=== PATIENT | male | born 1970 | race Caucasian/White ===

== ENCOUNTER → 2017-07-23 | Outpatient (CLI) | payer OTHER ==
[~2017-07-23] MED LIST: CETI10TA84 PO; CYCL10TA6 PO; MULT-506 PO; OMEP20CA9 PO; ONDA4TAB7 SL; PRLSR20 PO; TRIA37.5 PO
== END | disposition home or self-care (01) ==
LOC: C.RDSM 14:56
PROVIDERS: ATTEND Physical Medicine & Rehabilitation Sports Medicine
DX: M25.559 Pain in unspecified hip (principal)

== ENCOUNTER 2023-01-31 05:02 | Observation (INO) ==
--- NOTE | 2023-01-10 10:27 | PAT Medication Instructions ---
Medication Instructions Date of Service January 10, 2023 Home Medications cetirizine 10 mg tablet 10 mg PO DAILY PRN dicyclomine 10 mg capsule 10 mg PO BID fluticasone propionate 50 mcg/actuation nasal spray,suspension (Allergy Relief (fluticasone)) 1 spray intranasal DAILY PRN multivitamin with minerals 1 tab PO DAILY omeprazole 40 mg capsule,delayed release 40 mg PO QAM triamterene 37.5 mg-hydrochlorothiazide 25 mg tablet 1 tab PO DAILY triamterene 75 mg-hydrochlorothiazide 50 mg tablet 1 tab PO QAM Continue as directed fluticasone propionate 50 mcg/actuation nasal spray,suspension (Allergy Relief (fluticasone)) 1 spray intranasal DAILY PRN(if needed) DO NOT take the morning of surgery cetirizine 10 mg tablet 10 mg PO DAILY PRN dicyclomine 10 mg capsule 10 mg PO BID multivitamin with minerals 1 tab PO DAILY triamterene 37.5 mg-hydrochlorothiazide 25 mg tablet 1 tab PO DAILY triamterene 75 mg-hydrochlorothiazide 50 mg tablet 1 tab PO QAM Take morning of surgery With a small sip of water, OTHERWISE NOTHING TO EAT OR DRINK AFTER MIDNIGHT: omeprazole 40 mg capsule,delayed release 40 mg PO QAM Take evening before surgery dicyclomine 10 mg capsule 10 mg PO BID Other Notes If you have any questions please call us at [phone] or [phone] or [phone] or [phone]
--- NOTE | 2023-01-12 09:02 | Anesthesiology Consultation ---
Date of Service January 12, 2023 Assessment & Plan (1) Encounter for pre-operative examination: - Outpatient joint assessment: Patient is currently scheduled for inpatient pathway. If re-evaluated and patient/surgeon requests outpatient pathway, patient is acceptable candidate for outpatient joint program from anesthesia standpoint pending surgeon's office assessment of pt motivation/support/completion of same day joint program preop requirements. Chart Review Chart Review: Acceptable Risk for Surgery and Patient seen in Pre Admission Testing Teaching & Discussion Pre-Anesthesia Teaching/Discussion Notes: Instructed NPO after midnight before surgery, except medications with 15 cc of water. Medication instructions provided according to the PAT guidelines. History Surgery Operation Date: 01/31/23 07:00 Proposed Procedures p Left Total Hip Arthroplasty, Possible Dual Mobility System - Dmitriy Mixon MD Height/Weight Height: 6 ft Weight: 120.8 kg Allergies Allergy/AdvReac Type Severity Reaction Status Date / Time grass pollen Allergy Mild Sneezing Unverified 01/05/23 13:59 tree and shrub pollen Allergy Mild Watery Eye Unverified 01/05/23 13:59 weed pollen Allergy Mild Sneezing Unverified 01/05/23 13:59 Medications Home Medications Medication Instructions Recorded Confirmed Last Taken cetirizine 10 mg tablet 10 mg PO DAILY PRN Allergy Symptoms 07/05/22 01/05/23 Unknown dicyclomine 10 mg capsule 10 mg PO BID 07/05/22 01/05/23 Unknown fluticasone propionate 50 1 spray intranasal DAILY PRN 07/05/22 01/05/23 Unknown mcg/actuation nasal Allergy Symptoms spray,suspension (Allergy Relief (fluticasone)) multivitamin with minerals 1 tab PO DAILY 07/05/22 01/05/23 Unknown omeprazole 40 mg capsule,delayed 40 mg PO QAM 07/05/22 01/05/23 Unknown release triamterene 75 1 tab PO QAM 01/05/23 01/05/23 Unknown mg-hydrochlorothiazide 50 mg tablet Past Medical History Medical History (Updated 01/12/23 @ 09:17 by Valerie De Leon PA-C) Chronic sinusitis denies current issues GERD (gastroesophageal reflux disease) controlled, stable per pt Hypertension controlled, stable per pt IBS (irritable bowel syndrome) Nausea and vomiting after administration of anesthetic agent denies needing scop patch Seasonal allergies Patient denies h/o stroke, seizures, heart attack, heart failure, DM, blood clots/DVTs or blood transfusions. Exercise / Class Metabolic Activity II 4-5 Yardwork/Stairs/Walk up hill (denies chest discomfort or shortness of breath with 1 FOS) Past Family History Family History Grandfather (Maternal) Hypertension Heart disease Grandmother (Maternal) Hypertension Stroke Uncle Cancer Asthma Mother No problems noted. Past Surgical History Surgical History (Updated 01/12/23 @ 09:18 by Valerie De Leon PA-C) H/O sinus surgery H/O wrist surgery right History of esophagogastroduodenoscopy (EGD) History of tonsillectomy and adenoidectomy Hx of colonoscopy Hx of hand surgery finger Past Anesthesia History No Family Hx of Anesthesia Complications and Other (awareness during tonsillectomy/combative with confusion and slow to wake after a different procedure-denies any issues with recent procedures, denies any h/o re- intubation) History of PONV History of PONV (denies needing scop patch) and Hx of Motion Sickness Social History Smoking Status: Never smoker Do You Dip or Chew Tobacco: No Hx Alcohol Use: Yes Alcohol type: beer alcohol intake frequency: a few times a month Hx Substance Use: No substance use type: does not use Review of Systems Snoring, denies witnessed apneas-reports negative sleep study yrs ago. Patient denies chest pain, shortness of breath, dyspnea on exertion, fever, chills, cough, wheezing, or palpitations. Physical Exam Vital Signs Vitals BP 137/88 P 79 TEMP 98.8 SP02 95% on RA RESP 18 Physical Patient resting comfortably in chair in no acute distress, alert and oriented, responding appropriately throughout visit Full cervical extension range of motion without pain TMD 3.5 finger breadths Mallampati Score 2 Dentition: intact, denies chipped or loose teeth, caps/crowns, implants or bridges-has upcoming dental appt for loose fillings-pt made aware he needs to contact surgeon's office regarding this. He verbalized understanding and agreement. Lungs: normal respiratory effort. Good air movement, clear throughout to auscultation, no adventitious breath sounds Cardiac: regular rate and rhythm, no murmurs noted Carotid arteries: negative bruit bilat Lab Results Anesthesia Preop Results Results Anesthesia Widget: WBC 7.17 K/ul (4.8-10.8) 01/12/23 Hgb 16.3 g/dl (14.0-18.0) 01/12/23 Hct 45.0 % (42.0-52.0) 01/12/23 Plt 300 K/uL (130-400) 01/12/23 Na 138 mmol/L (136-145) 01/12/23 K 4.0 mmol/L (3.5-5.1) 01/12/23 Cl 103 mmol/L (98-107) 01/12/23 CO2 28 mmol/L (21-32) 01/12/23 BUN 17 mg/dl (6-23) 01/12/23 Creat 1.10 mg/dl (0.6-1.4) 01/12/23 Glucose Level 95 mg/dl (70-99(Fasting)) 01/12/23 PT 10.3 Seconds (9.0-12.0) 01/12/23 PTT 27.6 Seconds (21.0-31.0) 01/12/23 INR 0.9 (0.9-1.1) 01/12/23 Urine Color Yellow 01/12/23 Urine Appearance Clear (Clear) 01/12/23 Urine pH 8.0 (4.5-7.5) H 01/12/23 Urine Specific Tyler 1.015 (1.000-1.030) 01/12/23 Urine Protein Negative (Negative) 01/12/23 Urine Glucose (UA) Negative (Negative) 01/12/23 Urine Ketones Negative (Negative) 01/12/23 Urine Blood Negative (Negative) 01/12/23 Urine Nitrite Negative (Negative) 01/12/23 Urine Bilirubin Negative (Negative) 01/12/23 Urine Urobilinogen Negative (Negative) 01/12/23 Urine Leukocyte Esterase Negative (Negative) 01/12/23 Blood Type O Positive 01/12/23 Antibody Screen NEGATIVE 01/12/23 Testing Electrocardiogram Date: 01/12/23 NSR, rate 69 bpm Chest X-Ray Date: 01/12/23 No acute process
[2023-01-31] MEDS ORDERED: LR 60ML/HR IV SCH (06:00)
[2023-01-31] MEDS ORDERED: TRANEXAMIC ACID 1,000 MG **IV Intra-op IV SCH (06:00)
[2023-01-31] MEDS ORDERED: TRANEXAMIC ACID 1,000 MG **IV Pre-op IV SCH (06:00)
[2023-01-31] MEDS ORDERED: LR 500ML BOLUS, THEN 15ML/HR IV SCH (06:00)
[2023-01-31] MEDS ORDERED: ROPIVACAINE 0.5% HCL/PF 150 MG, BUPIVACAINE 0.75% MPF 20 ML, EPINEPHrine 0.15 MG, Ketor... INFIL SCH (06:00)
[2023-01-31] MEDS ORDERED: BUPIVACAINE 0.5 % 5 MG/1 ML PF 10ML VIAL ONE (06:25)
--- NOTE | 2023-01-31 06:31 | History & Physical Bridge Note ---
Date of Service January 31, 2023 History & Physical Bridge Note I have examined the patient, reviewed the History & Physical and in the interval since the performance of the History & Physical I have noted the following changes of clinical significance: consent obtained/site verified.no changes noted
[2023-01-31] MEDS ORDERED: ORTHO JOINT ANESTHETIC ONE (06:33)
[2023-01-31] MEDS ORDERED: PROPOFOL IV EMULSION 10 MG/ML 20 ML VIAL IV ONE ×3 (06:39→08:35)
[2023-01-31] MEDS ORDERED: LIDOCAINE 2% 2 ML VIAL/AMP(20MG/ML) INFIL ONE (06:39)
[2023-01-31] MEDS ORDERED: fentaNYL citrate PF 100 MCG/2 ML VIAL ONE (06:40)
[2023-01-31] MEDS ORDERED: MIDAZOLAM HCL 1 MG/ML 2ML VIAL ONE (06:40)
[2023-01-31] MEDS ORDERED: ONDANSETRON INJ 2 MG/ML 2 ML VIAL ONE (07:04)
[2023-01-31] MEDS ORDERED: DEXAMETHASONE SOD INJ 4 MG/ML VIAL ONE (07:04)
[2023-01-31] MEDS ORDERED: HYDROmorphone INJ 1 MG/ML SYRINGE IV PRN (07:13)
[2023-01-31] MEDS ORDERED: PROMETHAZINE HCL 12.5 MG in SODIUM CHLORIDE 0.9% 50 ML IV PRN (07:13)
[2023-01-31] MEDS ORDERED: LABETALOL HCL IV 5 MG/ML 20ML IV PRN (07:13)
[2023-01-31] MEDS ORDERED: ePHEDrine sulfate 50 MG/ML AMP IV PRN (07:13)
[2023-01-31] MEDS ORDERED: NALOXONE HCL 0.4 MG/1 ML VIAL/CARP IV PRN ×2 (07:13→10:14)
[2023-01-31] MEDS ORDERED: ATROPINE SULFATE 0.1 MG/ML 10ML SYR IV PRN (07:13)
[2023-01-31] MEDS ORDERED: FLUMAZENIL 0.1 MG/1 ML 10 ML VIAL IV PRN (07:13)
[2023-01-31] MEDS ORDERED: fentaNYL citrate PF 100 MCG/2 ML VIAL IV PRN (07:13)
[2023-01-31] MEDS ORDERED: ONDANSETRON INJ 2 MG/ML 2 ML VIAL IV PRN ×2 (07:13→10:14)
[2023-01-31] MEDS ORDERED: VANCOMYCIN HCL 1000MG/20ML VIAL ONE (08:11)
--- NOTE | 2023-01-31 08:57 | Post Operative Brief Note ---
Immediate Post Op Note v1 Date of Surgery January 31, 2023 Pre & Post Diagnosis Operation Date: 01/31/23 07:00 Pre-Op Diagnosis: Left Hip Osteoarthritis Post-Op Diagnosis: Left Hip Osteoarthritis I identified the patient and participated in the time-out.: Yes Procedure Operation Date: 01/31/23 07:00 Actual Procedures p Left Total Hip Arthroplasty,Dual Mobility System--Uncemented(Left) - Dmitriy Mixon MD Surgeon Dmitriy Mixon MD Medical Record Librarians Teacher [facility] no resident or fellow available Estimated Blood Loss 150 Findings Consistent with Post-Op Diagnosis Severe osteoarthritis significant acetabular osteophyte around the rim Fluids See anesthesia report Complications None
--- NOTE | 2023-01-31 09:01 | Operative Report ---
Post Operative Report Procedure Date: January 31, 2023 Pre & Post Diagnosis: [] Severe osteoarthritis left hip Postop diagnosis same Time Out: I identified the patient and participated in the time-out. Procedure: [] Noncemented left total replacement Surgeon: [] Apurva Weather Strip Mechanic: [Devin no resident or fellow available] Estimated Blood Loss: [150 cc] Findings: [Severe osteoarthritis with marginal osteophytes around the entire acetabular rim] Specimens: [Bone] Description of Procedure: [] After the patient was identified site verified consent verified he was then carefully placed in right lateral decubitus position left lower extremity prepped and draped in his routine fashion. Markers were placed about the leg as usual fashion. Posterior approach the hip was made he is a large man appropriate incision made. IT band fascia and gluteus megan fascia incision made. Retractor placed care taken to protect the sciatic nerve. Short external rotators were identified and released. The capsule was then teed. Required a lot of release to get him to dislocate based on all the marginal osteophytes. Femoral osteophytes off the posterior acetabulum were removed in order to have this happen. Care was taken to protect the sciatic nerve. The hip was then dislocated the femoral neck resected. The anterior capsule released. Appropriate and acetabular retractors placed carefully protecting the sciatic nerve and the femoral nerve anteriorly. Serial reaming was then carried up to a 54 and a 54 cup impacted into position with excellent anteversion and inclination a 25 mm screw 6.5 diameter was then placed with excellent purchase. There was huge osteophytosis about the margin of the acetabulum this was all excised in order to except the dual mobility liner. This was decided upon based upon the type of osteoarthritis he has with severe back stiffness. Once this was done the permanent liner was then impacted and was seated well. Femur was then flexed internally rotated and then the proximal femur prepared with the jukebox route driver canal finder lateralizing rasp and serial reaming up to a size 4. Size 4 was then placed and the hip reduced. 1.5 neck length was excellent on the leg lengths. The hip stability was excellent. The hip was then dislocated. The wound was then irrigated with Betadine Pulsavac and then vancomycin powder placed after the stem was seated and the head and neck were seated and the hip was then reduced the capsule was then closed more than more vancomycin powder was then placed. Wound was then closed for the deep fascia using #2 Vicryl for the deep fat #2 Vicryl for the subcutaneous tissue 2-0 Vicryl for the skin standstill clips with retention sutures. Retention suture was a #1 Prolene. EBL was 150 cc or less crystalloid per anesthesia bone pathology pending DVT prophylaxis per protocol summary of implants size 54 acetabular shell sector cup: Meter 6.5x25 screw the mobility liner 54 mm metal liner for standard Tri-Lock femoral neck 4728 liner 28+1.5 head. These were all DePuy systems. The head was ceramic. Attestation: I attest to the content of the Intraoperative Record and any orders documented therein. Any exceptions are noted below.
--- NOTE | 2023-01-31 09:03 | Orthopedic Progress Note ---
Date of Service January 31, 2023 Assessment & Plan (1) Status post left hip replacement: Plan Case management to evaluate DVT prophylaxis per protocol. Admission and Anticipated Discharge Date Admission Date: 01/31/2023 potential discharge 02/01/2023 Orthopedic Progress Note Patient tolerated procedure well denies chest pain shortness of breath fever chills nausea vomiting headache. Minimal blood loss. Wound dressing clean dry and intact neuro neurologic exam femoral side 100 limited by spinal. Hip is located. X-ray pending. Assessment doing well status post left hip replacement continue care pathway DVT prophylaxis per protocol
--- NOTE | 2023-01-31 09:04 | Orthopedic Progress Note ---
Date of Service January 31, 2023 Review of Systems Review of Systems: unchanged from yesterday Results & Data Vital Signs (Past 12 Hours) Vital Signs Temp Pulse Resp BP Pulse Ox O2 Del Method 01/31/23 05:29 36.7 C 80 18 168/93 H 96 Room Air
--- NOTE | 2023-01-31 09:05 | Discharge Summary ---
Date of Service February 01, 2023 Admission HPI Per Admitting Provider Severe left hip pain severe disease by x-ray limited exam is marked pain with any range of motion Principal Diagnosis Severe osteoarthritis left hip Discharge Data Allergies Allergy/AdvReac Type Severity Reaction Status Date / Time grass pollen Allergy Mild Sneezing Verified 01/31/23 05:26 tree and shrub pollen Allergy Mild Watery Eye Verified 01/31/23 05:26 weed pollen Allergy Mild Sneezing Verified 01/31/23 05:26 Vaccinations None Consultations None Procedures Performed Operation Date: 01/31/23 07:00 Actual Procedures p Left Total Hip Arthroplasty,Dual Mobility System--Uncemented(Left) - Dmitriy Mixon MD Ordered Studies X-rays bone pathology pending Hospital Course (1) Status post left hip replacement: Care pathway for hip replacement Plan Case management to evaluate DVT prophylaxis per protocol. Total Time Total Time Spent Total Time Spent (In Minutes): 5 minutes Discharge Plan Discharge Items Patient Disposition: Home - Home Health Services Reason For Visit: Left Hip Osteoarthritis Discharge Diagnosis: Left hip status post total hip replacement Condition on Discharge: Good Activity: Per Instructions section Lifting: Wait until after follow-up appointment Bathing: Keep incision dry Sexual Activity: Wait until after follow-up appointment Exercise/Sports: Wait until after follow-up appointment Driving/Machine Use: No driving until cleared by Dr. Mixon Weightbearing: Full weightbearing Non-emergency contact: Surgeon Call non-emergency contact if: you have any medication questions, your pain is not controlled, your temperature is above 101.5, your wound has increased redness, your wound has increased drainage and your wound pain has increased Follow-up/Referrals: Michael Palacios MD [Primary Care Provider] - Diet: Regular Addtl Attending Provider Instructions: New Medicine: * You will likely be taking one or more of these medicines: 1. Percocet - Take, as directed, when you need it, every four to six hours to control your pain. 2. Iron Sulfate - Take three times each day for the month after surgery to help you replace the blood lost during surgery. 3. Eliquis- Thins your blood to lessen the chance of forming a blood clot. * The most common side effects of pain medicine and iron are nausea and constipation. If nausea or constipation is too much of a problem or if you have any questions about your new medicines or doses, call [facility] at . We will try to help you manage these issues. "VERY IMPORTANT TO READ AND REVIEW" Blood Clots and Blood Thinning Medicine: * You are given Eliquis during the immediate post-operative period to lessen the risk of blood clots forming in your legs and/or lungs. It is usually given for six weeks after surgery. Pain: * The immediate post-operative period after hip replacement surgery is often quite painful. * You are given a prescription for pain medicine. You should take it, as directed, when you need it, especially before physical therapy and before going to bed. Pain that interferes with sleep is very common and can last several months. * You will likely need pain medicine for the first two to four weeks. It will not stop all of the pain. The pain will lessen and as you feel better, you may change to milder pain medicine such as Tylenol. * The most common side effects of pain medicine are nausea and constipation, so don't take more than you need. Physical Therapy: * Follow the "Hip Precautions Instructions." * In some cases, the secondary social studies teacher at the hospital will arrange to have a therapist come to your house for the first couple of weeks to help you learn these skills. * You need to practice on your own or with the help of a family member as needed. * When you learn these skills, most of the therapy can be done on your own. Home Exercise: * You were shown a series of exercises in the hospital. Do these exercises three to four times each day including the exercises you were shown in physical therapy. Walking: * Get up and walk several times each day. For the first four weeks, try not to stand or walk for more than one hour at a time. If you do stand or walk for more than one hour, you will not hurt anything, but your leg will likely swell. * As you feel comfortable, you may change from the walker or crutches to a cane and then to independent walking. SELF CARE INSTRUCTIONS AFTER TOTAL HIP REPLACEMENT Until the incision and soft tissues around your hip have healed, there is a possibility that the hip prosthesis could dislocate. A. Observe the following precautions to prevent dislocation: 1. Don't bend your hip greater than 90 degrees. 2. Avoid crossing your legs or ankles while standing or lying. 3. Sit with your feet placed 6 inches apart. 4. When sitting, keep your knees below your hips. Sit on a firm surface, avoid deep, soft chairs and couches. Use an elevated toilet seat in the bathroom. 5. Don't bend over at the waist. Use a long handled shoehorn and a sock aid to help you put on your shoes and socks. A hairspring ii inspector can help you picker objects that are too high or too low to reach. 6. Keep car riding to a minimum for at least one month after surgery. B. Your balance may be shaky for a while. Use crutches or a walker until directed by your doctor. C. Use hand rails when walking on stairs. D. Wear low heeled shoes with non-slip soles. E. Be sure that your floors are free of things that could trip you - throw rugs, electrical cords, small objects. Avoid wet and waxed floors, especially with crutches and canes. F. Try to walk several times a day with rest periods between. G. Continue with all the exercises taught to you in the hospital. Again, make walking a part of your daily routine. VERY IMPORTANT TO READ AND REVIEW A. Take Eliquis (blood thinning medication) as directed by your doctor. B. There are a few signs you need to watch for after you are home. If you notice any of the followin. Increased severe hip pain. Some pain is expected especially when you exercise. 2. Increased swelling in your leg or knee; pain or swelling of the calf muscle in either lower leg. 3. Any fluid drainage from the incision. 4. Shortness of breath or chest pain. TEDs/Elastic Stockings: * The white elastic stockings help limit swelling and prevent blood clots from forming in your legs. The more you wear them, the more they work. * Wear them for six weeks. Prevention of Infection: * Take antibiotics one hour before any dental cleaning, dental work, urological procedure, gastrointestinal procedure or any invasive surgery in order to prevent your new joint from getting infected. * You may get the antibiotics from the doctor performing the procedure or we will call in a prescription to the pharmacy of your choice. Call the office for a prescription at least 2 days prior to your appointment. Things to Watch For: * Drainage from the incision site that occurs more than one week after your surgery. * Severely increased leg pain or swelling. * Increased redness at the incision site. * Fever above 101 degrees Fahrenheit. * Unusual chest pain or shortness of breath. * Unusual pain or burning with urination. Start your Eliquis evening. Take it twice a day for 6 weeks. Use your walker when ambulating. Follow-up in the office in 2 weeks as scheduled for staple removal with Neft[facility] Continue your prednisone 10 mg once daily for 7 days Take doxycycline 1 pill 2 times a day for 10 days to minimize any risk for infection Call the office with any other concerns. Pending Studies at Discharge: Yes Studies:: Bone pathology Stand-Alone Forms: My [facility], Smoking Cessation Medications and DC Order Prescriptions: No Action multivitamin with minerals Tablet 1 tab PO DAILY omeprazole 40 mg capsule,delayed release(DR/EC) 40 mg PO QAM dicyclomine 10 mg capsule 10 mg PO BID fluticasone propionate [Allergy Relief (fluticasone)] 50 mcg/actuation spray,suspension 1 spray intranasal DAILY PRN (Reason: Allergy Symptoms) Rx Instructions: administer into each nostril cetirizine 10 mg tablet 10 mg PO DAILY PRN (Reason: Allergy Symptoms) triamterene-hydrochlorothiazid 75-50 mg Tablet 1 tab PO QAM Admission Data Admit Date/Time: 01/31/23 09:12 Attending Provider: Dmitriy Mixon Admit Provider: Dmitriy Mixon Primary Care Provider: Michael Palacios
--- NOTE | 2023-01-31 09:06 | Operative Report ---
Post Operative Report Pre & Post Diagnosis Operation Date: 01/31/23 07:00 Pre-Op Diagnosis: Left Hip Osteoarthritis Post-Op Diagnosis: Left Hip Osteoarthritis I identified the patient and participated in the time-out.: Yes Procedure Operation Date: 01/31/23 07:00 Actual Procedures p Left Total Hip Arthroplasty,Dual Mobility System--Uncemented(Left) - Dmitriy Mixon MD Surgeon MARY Mixon MD District Sales Manager Devin BARKLEY no resident or fellow available Estimated Blood Loss 150 Findings Consistent with Post-Op Diagnosis see operative report Specimens see operative report Drains none Complications none Disposition Accompanied Patient To Recovery: Yes Indications This 52-year-old male presented to the office with complaints of persisting left hip pain and loss of motion. His symptoms were affecting his ADLs. He had tried conservative care measures without improvement. He elected to proceed with surgical invention after being educated about potential risks and outcomes. Preoperative imaging was obtained. Description of Procedure The patient was administered a spinal anesthetic and then taken to the operating room where he was given sedation. He was prepped and draped in the usual sterile fashion. Please see Dr. Mixon's operative report for specifics of the procedure. I was present for the entire case from initial patient positioning through final wound closure. Assistance was provided in tissue retraction, hemostasis, trial implant placement, final implant placement, and final wound closure. The patient was taken to the recovery room in satisfactory condition. I attest to the content of the Intraoperative Record and any orders documented therein. Any exceptions are noted below.
--- NOTE | 2023-01-31 09:45 | XRay Report ---
XR pelvis 1-2V routine CLINICAL HISTORY: Status post left total arthroplasty. COMPARISON STUDY: Pelvis 08/28/2022. FINDINGS: Status post left total hip arthroplasty. The hardware appears intact. No fracture or disloc ation. Skin belkis are in place. Moderate osteoarthritis again noted within the right hip. IMPRESSION: Status post left total hip arthroplasty. No evidence for hardware complication. ACT 112: Negative or not required by law. Electronically signed by: Dontrell Hamilton M.D. 01/31/2023 9:44 AM
--- NOTE | 2023-01-31 09:57 | Anesthesiology Progress Note ---
Date of Service January 31, 2023 Anesthesia Post Procedure Vital Signs Vital Signs: Temp Pulse Pulse Resp BP Pulse Ox O2 Del Method 01/31/23 09:50 36.4 C L 68 18 142/81 H 93 Room Air 01/31/23 09:40 75 12 151/80 H 94 Room Air 01/31/23 09:30 76 18 134/91 96 Room Air 01/31/23 09:20 76 12 124/88 97 Room Air 01/31/23 09:10 69 18 125/87 100 Oxymask 01/31/23 09:00 36.2 C L 74 13 121/74 96 Oxymask 01/31/23 05:29 36.7 C 80 18 168/93 H 96 Room Air O2 Flow Rate 01/31/23 09:50 01/31/23 09:40 01/31/23 09:30 01/31/23 09:20 01/31/23 09:10 6 01/31/23 09:00 10 01/31/23 05:29 Pain Intensity Left Hip: Pain Intensity: 2 Transfer of Care Handoff Completed per policy Notes Mental Status: alert / awake / arousable Patient Amnestic to Procedure: Yes Nausea / Vomiting: adequately controlled Pain: adequately controlled Airway Patency, RR, SpO2: stable & adequate BP & HR: stable & adequate Hydration State: stable & adequate Neuraxial Anesthesia: was administered and sensory block is resolving Anesthetic Complications: no major complications apparent
[2023-01-31] MEDS ORDERED: oxyCODONE HCL IR 5 MG TAB (IMMEDIATE RELEASE) PO PRN (10:14)
[2023-01-31] MEDS ORDERED: SODIUM CHLORIDE 0.9% 1,000 ML IV SCH (10:14)
[2023-01-31] MEDS ORDERED: diphenhydrAMINE 50 MG/ML VIAL IV PRN (10:14)
[2023-01-31] MEDS ORDERED: HYDROmorphone INJ 0.5 MG/0.5 ML SYR IV PRN (10:14)
[2023-01-31] MEDS ORDERED: MAGNESIUM HYDROXIDE SUSP 30 ML UDC PO PRN (10:14)
[2023-01-31] MEDS ORDERED: FLUTICASONE PROPIONATE NA SPR 16 GM BTL NAE PRN (10:14)
[2023-01-31] MEDS ORDERED: ALUMINUM/MAGNESIUM SUSP 30 ML UDC PO PRN (10:14)
[2023-01-31] MEDS ORDERED: bisacodyL 10 MG SUPP PR PRN (10:14)
[2023-01-31] MEDS ORDERED: METOCLOPRAMIDE HCL INJ 5 MG/ML 2 ML VIAL IV PRN (10:14)
[2023-01-31] MEDS ORDERED: CETIRIZINE HCL 10 MG TABLET PO PRN (10:14)
[2023-01-31] MEDS ORDERED: TAMSULOSIN HCL 0.4 MG CAP PO PRN (10:14)
[2023-01-31] MEDS: KETOROLAC 30 MG/ML VIAL IV SCH ×3 (10:43→23:08)
[2023-01-31] MEDS ORDERED: TRANEXAMIC ACID / 0.7% NACL 1,000 MG/100 ML BAG IV SCH (15:15)
[2023-01-31] MEDS: ACETAMINOPHEN 500 MG TAB PO SCH ×2 (15:20→23:07)
[2023-01-31] MEDS: ceFAZolin 2000MG 2,000 MG/15 ML SYR IV SCH ×2 (15:21→23:08)
[2023-01-31] MEDS: FERROUS GLUCONATE 324 MG TAB PO SCH (16:32)
[2023-01-31] MEDS: ASCORBIC ACID 500 MG TAB PO SCH (16:32)
[2023-01-31] MEDS: DICYCLOMINE HCL 10 MG CAP PO SCH (20:35)
[2023-01-31] MEDS: DOCUSATE SODIUM 100 MG CAP PO SCH (20:35)
[2023-01-31] MEDS ORDERED: SENNA 8.6 MG TAB PO SCH (21:00)
[2023-02-01] MEDS: KETOROLAC 30 MG/ML VIAL IV SCH (04:52)
[2023-02-01] MEDS: ACETAMINOPHEN 500 MG TAB PO SCH (05:28)
--- NOTE | 2023-02-01 07:46 | Orthopedic Progress Note ---
Date of Service February 01, 2023 Assessment & Plan Admission and Anticipated Discharge Date Admission Date: January 31, 2023 Orthopedic Progress Note Postop day 1 status post left total replacement. Patient is awake and alert sitting up in bed. Denies any chest pain shortness of breath fever chills nausea vomiting or headache. Vital signs are stable he is afebrile. Neurovascular check femoral sciatic nerve is normal. Wound dressing clean dry and intact. Calves nontender. Hip located. Assessment doing well continue with care pathway discharged home today after PT OT. Initiate anticoagulation.Follow-up in 2 weeks for staple removal. Follow- up in 1 week for wound check. Retention sutures needed as long as wound is completely dry.
[2023-02-01] MEDS ORDERED: dexAMETHasone 10 MG in SYRINGE 0 ML IV SCH (08:00)
[2023-02-01 08:02] LABS: Basophils # (auto) 0.02 K/uL (0.00-0.20); Basophils % (auto) 0.1 %; Eosinophils # (auto) 0.01 K/uL (0.00-0.50); Eosinophils % (auto) 0.1 %; Hematocrit (blood only) 37.9 % (42.0-52.0); Hemoglobin 13.7 g/dl (14.0-18.0); Immature Granulocytes # (auto) 0.05 K/uL (0.01-0.20); Immature Granulocytes % (auto) 0.3 %; Lymphocytes # (auto) 1.98 K/uL (1.20-3.40); Lymphocytes % (auto) 12.8 %; Mean Corpuscular Hgb Conc 36.1 g/dL (32.0-36.0); Mean Corpuscular Volume 91.3 fL (80.0-100.0); Mean Platelet Volume 10.6 fL (9.4-12.4); Neutrophils # (auto) 11.72 K/uL (1.40-6.50); Neutrophils % (auto) 75.7 %; Platelet Count 242 K/uL (130-400); RDW Coefficient of Variation 12.3 % (11.5-14.5); RDW Standard Deviation 40.8 fL (36.4-46.3); Red Blood Count 4.15 M/uL (4.70-6.10); White Blood Count 15.48 K/ul (4.8-10.8)
[2023-02-01 08:22] LABS: BUN Creatinine Ratio 19.1 (10-20); Calcium 9.3 mg/dl (8.6-10.3); Creatinine Clr Calc Pharmacy 101.6 ml/min; Est GFR (African American) 84.9 ml/min; Est GFR (Non-African American) 73.3 ml/min; Potassium 3.5 mmol/L (3.5-5.1)
[2023-02-01] MEDS: FERROUS GLUCONATE 324 MG TAB PO SCH (08:49)
[2023-02-01] MEDS: DOCUSATE SODIUM 100 MG CAP PO SCH (08:49)
[2023-02-01] MEDS: ASCORBIC ACID 500 MG TAB PO SCH (08:49)
[2023-02-01] MEDS: DICYCLOMINE HCL 10 MG CAP PO SCH (08:50)
[2023-02-01] MEDS ORDERED: TRIAMTERENE/HCTZ 37.5/25MG TAB PO SCH (09:00)
[2023-02-01] MEDS ORDERED: MULTIVITAMIN TAB PO SCH (09:00)
[2023-02-01] MEDS ORDERED: APIXABAN 2.5 MG TAB PO SCH (09:00)
[2023-02-01] MEDS ORDERED: PANTOprazole 40 MG TAB PO SCH (09:00)
--- NOTE | 2023-02-01 09:22 | Orthopedic Progress Note ---
Date of Service February 01, 2023 Assessment & Plan (1) Status post left hip replacement: Plan: The patient was educated regarding today's findings. Conservative care measures were discussed. He will be discharged to home today after PT/OT. Home health services have already been established. His dressing was changed today by me. It should be left in place through the weekend. It can be changed on Sunday by home health services as needed for soiling. Prescriptions for Percocet, prednisone, doxycycline, and Eliquis were sent to his pharmacy. Written discharge instructions were provided. Continue using the walker for ambulation and weightbearing. Follow-up in the office with me in 2 weeks as scheduled for staple removal. Call the office as needed for any other questions/concerns. Admission and Anticipated Discharge Date Admission Date: January 31, 2023 Subjective This 52-year-old male is seen today in his room. He is 1 day status post left total hip arthroplasty. He states he is doing well. He is having minimal pain. He is pleased with his outcome thus far. He denies any chest pain, shortness of breath, nausea, vomiting, or abdominal pain. No dizziness or lightheadedness. He feels ready for discharge to home. He has just finished his breakfast. Review of Systems Review of Systems: Unchanged from yesterday. Physical Exam Physical Exam: General: Well-developed, well-nourished, middle-aged male, in no acute distress. Laying in bed. Alert and oriented. Conversive. Skin: Warm and dry with good turgor. No rashes. Postsurgical dressings are in place on the left hip. Upon removal, there is scant dried blood on the most inner dressings. His wound looks good. [place] are in place. Wound edges are well approximated. No erythema. No active bleeding. No ecchymosis or edema. Musculoskeletal: Left hip evaluation reveals supple motion. He has intact active motion for hip, knee, and ankle on the left side. He moves well in bed. No significant discomfort with palpation over the gluteus. He does have generalized soreness with palpation over the thigh. Neurologic: Gross sensation is intact across the left leg by soft touch. Peripheral pulses are 2+. Results & Data Vital Signs (Past 12 Hours) Vital Signs Temp Pulse Pulse Resp BP Pulse Ox O2 Del Method 02/01/23 07:29 36.6 C 77 16 141/84 H 95 Room Air 02/01/23 04:00 36.6 C 86 18 124/77 95 Room Air 01/31/23 23:47 36.6 C 78 18 130/80 94 Room Air Laboratory Results CBC obtained this morning shows a white count of 15.48. Hemoglobin of 13.7 and hematocrit 37.9. Platelets normal at 242,000. Sodium 135, potassium 3.5, chloride 103, anion gap normal at 7. BUN of 22 with creatinine 1.15. Glucose level at 122 this morning. Calcium 9.3.
--- OUTSIDE RECORDS SUMMARY | 2023-02-04 09:06 | External Medical Summary | Summary of Care ---
Author Name Unknown Organization [facility] Address [address] [place] [address] Phone [phone] Care Team Providers Care Segmental Wall Installer Name Role Phone Michael Palacios MD Primary Care Provider [phone] Reason for Visit * Reason Onset Date Comments Test Results 08/22/2022 Encounter Details Date Type Department Care Team Description 08/22/2022 Telephone Gastroenterology, [facility] [address] [place] [address] Hazel Parson CRNP [address] [place] [id number] Test Results Allergies Active Allergy Reactions Severity Noted Date Comments Pollen 08/25/2014 documented as of this encounter (statuses as of 08/22/2022) Medications Medication Sig Dispensed Refills Start Date End Date Status fexofenadine (YOVANI) 180 MG TabletIndications: in am Take 1 Tablet by mouth daily as needed for Allergies. 30 Tab 11 07/09/2017 Active Fluticasone Propionate 50 MCG/ACT Nasal Suspension (Flonase)Indicatio ns:Mixed rhinitis Administer 2 Sprays into each nostril daily. 48 g 1 05/18/2021 Active Additional Information Patient taking differently:, Administer 2 Sprays into each nostril daily.,Indications: as needed, Reported on 04/07/2022 One-A-Day Mens 50+ Advantage Oral Tablet Take by mouth . 0 Active Proventil HFA 108 (90 Base) MCG/ACT Inhalation Aerosol SolutionIndication s:Bronchitis, complicated Inhale by mouth 2 Puffs every 4 hours as needed for Wheezing. 18 g 1 12/26/2021 Active Additional Information Patient not taking.Reported on 04/13/2022 Omeprazole 40 MG Oral Capsule Delayed Release (PriLOSEC)Indicati ons:Gastroesophage al reflux disease without esophagitis TAKE 1 CAPSULE DAILY 90 Capsule 3 01/02/2022 Active Triamterene-HCTZ 75-50 MG Oral Tablet (Maxzide) Take 1 Tablet by mouth in the morning. 90 Tablet 3 07/28/2022 Active Dicyclomine HCl 10 MG Oral Capsule (Bentyl) Take 1 capsule by mouth 4 times a day if needed for abd pain or bloating 360 Capsule 3 07/28/2022 Active documented as of this encounter (statuses as of 08/22/2022) Active Problems Problem Noted Date Class 2 obesity without seri ous comorbidity with body mass index (BMI) of 37.0 to 37.9 in adult 05/30/2010 Other chronic allergic conjunctivitis HTN, goal below 140/90 04/28/2009 Mixed rhinitis Gastroesophageal reflux disease documented as of this encounter (statuses as of 08/22/2022) Resolved Problems Problem Noted Date Resolved Date Avascular necrosis of femur 03/12/201704/26 Lactose intolerance 10/03/2012 03/12/2017 Obesity, Class II, BMI 35-39.9, isolated (see ac tual BMI) 11/08/2011 07/09/2017 Overview: bmi= 35.73 11/08/11 Screening for cardiovascular condition 2 10/03/2012 Obesity, Class II, BMI 35-39.9, isolated (see ac tual BMI) 09/06/2009 10/03/2012 Overview: Per Obesity Protocol, #19 Chronic sinusitis 05/18/2009 11/08/2011 Esophageal reflux 05/18/2009 07/22/2015 Other allergic rhinitis 01/28/2003 07/22/19 16 Overview: ICD-10 update of inactive term documented as of this encounter (statuses as of 08/22/2022) Immunizations Name Administration Dates Next Due COVID-19 mRNA, LNP-s, No Pre serve, 2-Dose Series (Pfizer) 02/25/2021,01/17/2021 TD, Preservative Free 08/12/2018 TDAP (age 11 and older)(Adacel) 06/26/2008 06/26/2018 documented as of this encounter Social History Tobacco Use Types Packs/Day Years Used Date Smoking Tobacco: Never Smokeless Tobacco: Never Comments: smokes Alcohol Use Standard Drinks/Week Comments Yes 0 (1 standard drink = 0.6 oz pur e alcohol) 2 beers per month Food Insecurity Answer Date Recorded Within the past 12 months, y ou worried that your food would run out before you got money to buy more. Never true 11/07/2021 Within the past 12 months, t he food you bought just didn't last and you didn't have money to get more. Never true 11/07/2021 Sex Assigned at Date Recorded Male 08/12/2018 9:22 AM E DT Job Start Date Occupation Industry Not on file Not on file Not on file documented as of this encounter Miscellaneous Notes * Telephone Encounter - Naye Carranza RN - 08/22/2022 2:30 PM EDT Normal lab letter sent. * Telephone Encounter - Naye Carranza RN - 08/22/2022 2:22 PM EDT ----- Message from VICTOR M Tom sent at 08/22/2022 10:41 AM EDT ----- Regarding: FW: Please let pt know that the gastric empty study results were normal ----- Message ----- From: Nickolas Peres In Sent: 08/18/2022 1:52 PM EDT To: VICTOR M Tom documented in this encounter Plan of Treatment Upcoming Encounters Date Type Specialty Care Team Description 10/31/2022 Office Visit Gastroenterology Hazel Parson CRNP [address] [facility] [place] [address] 01/25/2023 Office Visit Family Medicine Michael Palacios MD [address] [place] [address] Health Maintenance Due Date Last Done Comments Hepatitis B (1 of 3 - 3-dose series) 1970 HIV Screening 11/30/1986 Albumin/Creatinine Ratio 11/30/1989 Hepatitis C Screening 11/30/1989 Cologuard 11/30/2016 Fecal Occult Blood Test 11/30/2016 Sigmoidoscopy 11/30/2016 COVID-19 Vaccine (3 - Booster for Pfizer series) 04/22/2021 02/25/2021, 01/17/2021 Zoster Vaccines (1 of 2) 11/30/2021 Depression Screening, Annual for Pts 12 and Over 11/07/2022 11/07/2021 Influenza Vaccine (FLU shot) (Season Ended) 2022 GFR 07/27/2023 07/26/2022, 0811/2020, 08/06/2020, Additional history exists Diabetes Screening 07/26/2025 07/26/2022, 0 11/01/2020, 08/06/2020, Additional history exists Lipid Panel 07/27/2027 07/26/2022, 07/24, 11/08/2011, Additional history exists DTaP,Tdap,and Td Vaccines (3 - Td or Tdap) 08/12/2028 08/12/2018, 06/26/2008 Colonoscopy 04/13/2032 04/13/2022, 04/13/2022 Colorectal Cancer Screening 04/13/2032 GARDASIL-HPV IMMUNIZATION SERIES Aged Out No longer eligible based on patient's age to complete this topic MENINGOCOCCAL (MENACTRA/MENVEO) Aged Out No longer eligible based on patient's age to complete this topic Pneumococcal Vaccine: Pediatrics (0 to 5 Years) and At-Risk Patients (6 to 64 Years) Aged Out No longer eligible based on patient's age to complete this topic documented as of this encounter Medical Devices Not on filedocumented as of this encounter Care Teams Segmental Wall Installer Relationship Specialty Start Date End Date [facility] Palacios [facility] [address] [facility] [place] [address] PCP - General 01/12/00 documented as of this encounter
--- OUTSIDE RECORDS SUMMARY | 2023-02-04 09:06 | External Medical Summary | Summary of Care ---
Author Name Unknown Organization [facility] Address [address] [place] [address] Phone [phone] Care Team Providers Care It Compliance Manager Name Role Phone Michael Palacios MD Primary Care Provider [phone]- [phone] Reason for Visit * Reason Comments Physical-Exam Pre-op clearance Encounter Details Date Type Department Care Team (Latest Contact Info) Description 01/15/2023 11:40 AM EDT [facility] [address] [place] [phone] Michael Palacios MD [address] [place] [address] Preoperative general physical examination*; Primary osteoarthritis of left hip; HTN, goal below 140/90; Gastroesophageal reflux disease, unspecified whether esophagitis present Allergies Active Allergy Reactions Criticality Noted Date Comments Pollen 08/25/2014 documented as of this encounter (statuses as of 01/25/2023) Medications Medication Sig Dispensed Refills Start Date End Date Status fexofenadine (YOVANI) 180 MG TabletIndications: in am Take 1 Tablet by mouth daily as needed for Allergies. 30 Tab 11 07/09/2017 Active One-A-Day Mens 50+ Advantage Oral Tablet Take [...] or bloating 360 Capsule 3 07/28/2022 Active Fluticasone Propionate 50 MCG/ACT Nasal Suspension (Flonase)Indicatio ns:as needed Administer 2 Sprays into each nostril daily. 48 g 1 10/04/2022 Active documented as of this encounter (statuses as of 01/25/2023) Active Problems Problem Noted Date Diagnosed Date Other chronic allergic conjunctivitis 05/18/2009 HTN, goal below 140/90 04/28/2009 Mixed rhinitis Gastroesophageal reflux disease documented as of this encounter (statuses as of 01/25/2023) Resolved Problems Problem Noted Date Diagnosed Date Resolved Date Avascular necrosis of femur 03/12/2017 05/09/2022 Lactose intolerance 10/03/2012 03/12/20 17 Obesity, Class II, BMI 35-39 .9, isolated (see actual BMI) 11/08/2011 07/09/2017 Overview: bmi= 35.73 11/08/11 Screening for cardiovascular condition 11/08/2011 10/03/2012 Class 2 obesity without seri ous comorbidity with body mass index (BMI) of 37.0 to 37.9 in adult 05/30/2010 01/25/2023 Obesity, Class II, BMI 35-39 .9, isolated (see actual BMI) 09/06/2009 10/03/2012 Overview: Per Obesity Protocol, #19 Chronic sinusitis 05/18/2009 11/08/2011 Esophageal reflux 05/18/2009 07/22/2015 Other allergic rhinitis 01/28/200306/25 Overview: ICD-10 update of inactive term documented as of this encounter (statuses as of 01/25/2023) Immunizations Name Administration Dates Next Due COVID-19 mRNA, LNP-s, No Pre serve, 2-Dose Series (Pfizer) 02/25/2021,01/17/2021 TD, Preservative Free 08/12/2018 TDAP (age 11 and older)(Adacel) 06/26/2008 06/26/2018 documented as of this encounter Social History Tobacco Use Types Packs/Day Years Used Date Smoking Tobacco: Never Smokeless Tobacco: Never Tobacco Cessation:Counseling Given: Not Answered Comments: smokes Alcohol Use Standard Drinks/Week Comments Yes 0 (1 standard drink = 0.6 oz pur e alcohol) 2 beers per month PHQ-2 Answer Date Recorded PHQ Adult Total Score 0 11/07/2021 Hunger Vital Sign Answer Date Recorded Within the past 12 months, y ou worried that your food would run out before you got the money to buy more. Never true 01/12/20 Within the past 12 months, t he food you bought just didn't last and you didn't have money to get more. Never true 01/11/2023 Sex and Gender Information Value Date Recorded Sex Assigned at Male 08/12/2018 9:22 AM EDT Gender Identity Male 08/12/2018 9:22 AM EDT Sexual Orientation Straight 08/12/2018 9: 22 AM EDT Job Start Date Occupation Industry Not on file Not on file Not on file documented as of this encounter Last Filed Vital Signs Vital Sign Reading Time Taken Comments Blood Pressure 132/86 01/15/2023 11:35 AM EDT Pulse 68 01/15/2023 11:35 AM EDT Temperature 36.4 C (97.5 F) 01/15/2023 11:35 AM E DT Respiratory Rate 20 01/15/2023 11:35 AM EDT Oxygen Saturation 98% 01/15/2023 11:35 AM EDT Inhaled Oxygen Concentration - - Weight 120 kg (264 lb 9.6 oz) 01/15/2023 11:35 A M EDT Height 182.9 cm (6') 01/15/2023 11:35 AM EDT Body Mass Index 35.89 01/15/2023 11:35 AM EDT documented in this encounter Progress Notes * Michael Palacios MD - 01/15/2023 11:53 AM EDT L [place]IARA 11/8/23 [facility] - Jaime Sunday [facility]. Subjective: Emanuel Ellison is a 52 year old male here today for Chief Complaint Patient presents with Physical-Exam Pre-op clearance Patient presents for preoperative medical evaluation prior to planned left total hip arthroplasty to be performed by Dr Sandoval at [facility] on 01/31/23. Patient has had progressive and debilitating hip pain that has failed conservative treatments. Patient reports that he had preoperative evaluation, testing at [facility] on 01/12/23. Patient denies any symptoms suggestive of active infection. Specifically, no fever, rhinorrhea, sore throat, cough, shortness of breath, abdominal pain, nausea, vomiting, dysuria, urinary frequency. He also denies any active cardiac or pulmonary symptoms. Specifically, no chest pain, shortness for breath, dizziness, syncope. He is had no problems with anesthesia. He is not aware of any family history of issues with anesthesia. Has had no problems with unexpected bleeding, bruising, clotting. He has been stable on triamterene/hydrochlorothiazide for hypertension and gets relief of gastroesophageal reflux symptoms with use of omeprazole. He takes Yovani and Flonase as needed for allergies. No allergies to medications. Family History Problem Relation Age of Onset Renal Hx Mother Hypertension Mother No Past Hx Father pt unaware of father's health Diabetes Grandfather (Maternal) Stroke Grandmother (Maternal) Cancer None Mental Disorder None Past Medical History: Diagnosis Date Gastroesophageal reflux disease HTN, goal below 140/90 2004 Mixed rhinitis Past Surgical History: Procedure Laterality Date COLONOSCOPY, DIAGNOSTIC (RECTUM) 04/13/2022 diverticulosis in sigmoid, non-bleeding internal hemorrhoids / no specimens collected / 10 year recall / COLONOSCOPY FLEXIBLE PROXIMAL DIAGNOSTIC performed by Ingrid Andrade MD at [facility] EGD, FLEXIBLE, DIAGNOSTIC 11/14/2021 z-line 40 cm from incisors, otherwise normal / biopsies normal / ESOPHAGOGASTRODUODENOSCOPY (EGD), FLEXIBLE, TRANSORAL, DIAGNOSTIC performed by Taya Franks MD at [facility]COPY [facility] MISCELLANEOUS ORDER 12/24/2002 endoscopic sinus surgery - Dr. Nagel MISCELLANEOUS ORDER around 31 left 5th digit repair/ temporary pinning REMOVAL OF TONSILS, AGE 12+ age 15 or 16 REVISION OF SPERMATIC CORD VEINS 03/14/2002 varicocele repair on left side Review of patient's allergies indicates: Allergen Reactions Pollen Current Outpatient Medications Medication Sig Dispense Refill fexofenadine (YOVANI) 180 MG Tablet Take 1 Tablet by mouth daily as needed for Allergies. 30 Tab 11 One-A-Day Mens 50+ Advantage Oral Tablet Take by mouth . Omeprazole 40 MG Oral Capsule Delayed Release (PriLOSEC) TAKE 1 CAPSULE DAILY 90 Capsule 3 Triamterene-HCTZ 75-50 MG Oral Tablet (Maxzide) Take 1 Tablet by mouth in the morning. 90 Tablet 3 Dicyclomine HCl 10 MG Oral Capsule (Bentyl) Take 1 capsule by mouth 4 times a day if needed for abdpain or bloating 360 Capsule 3 Fluticasone Propionate 50 MCG/ACT Nasal Suspension (Flonase) Administer 2 Sprays into each nostril daily. 48 g 1 Proventil HFA 108 (90 Base) MCG/ACT Inhalation Aerosol Solution Inhale by mouth 2 Puffs every 4 hours as needed for Wheezing. (Patient not taking: Reported on 04/13/2022) 18 g 1 No current facility-administered medications for this visit. Objective: BP 132/86 | Pulse 68 | Temp 36.4 C (97.5 F) (Temporal Artery) | Resp 20 | Ht 1.829 m(6') | Wt 120 kg (264 lb 9.6 oz) | SpO2 98% | BMI 35.89 kg/m | BSA 2.47 m GEN: NAD HEENT: Benign NECK: Supple with no LAD, TM, JVD CHEST: CTA B CV: RRR ABD: Soft, NT/ND, No HSM, NABS EXT: No c,c,e CXR (01/12/23): No acute disease. EKG (01/12/23): NSR UA (01/12/23): negative CBC, BMP, PT/INR, PTT (01/12/23): unremarkable Assessment and Plan: Preoperative general physical examination (Primary) Primary osteoarthritis of left hip HTN, goal below 140/90 Gastroesophageal reflux disease, unspecified whether esophagitis present -medically stable and appropriate for proposed procedure. -pt to contact our office if new or worsening symptoms prior to procedure date. Follow Up: Return for can cancel appt on 01/25, reschedule for 6 months. | For: can cancel appt on 01/25, reschedule for 6 months 30 min with pt and chart review. Michael Palacios MD documented in this encounter Nursing Notes * Kristen Obrien LPN - 01/15/2023 11:35 AM EDT The patient has been properly identified by confirmation of name and date of . Chief Complaint Patient presents with Physical-Exam Pre-op clearance documented in this encounter Plan of Treatment Upcoming Encounters Date Type Department Care Team (Late st Contact Info) Description 07/17/2023 3:00 PM EDT Office Visit [facility] [address] [place] [address] Michael Palacios MD [address] [place] [address] Scheduled Procedures Name Priority Associated Diagnoses Date/Ti me COLONOSCOPY FLEXIBLE PROXIMAL DIAGNOSTIC Recall Screen for colon cancer Health Maintenance Due Date Last Done Comments Hepatitis B (1 of 3 - 3-dose series) 1970 HIV Screening 11/30/1986 Albumin/Creatinine Ratio 11/30/1989 Hepatitis C Screening 11/30/1989 Cologuard 11/30/2016 Fecal Occult Blood Test 11/30/2016 Sigmoidoscopy 11/30/2016 Zoster Vaccines (1 of 2) 11/30/2021 Depression Screening 11/07/2022 11/07/2021 COVID-19 Vaccine (3 - season) 2022 02/25/2021, 01/17/2021 Influenza Vaccine (FLU shot) (#1) 2022 GFR 07/27/2023 07/26/2022, 08/0 11/2020, 08/06/2020, Additional history exists Diabetes Screening 07/26/2025 [...] Not on filedocumented as of this encounter Visit Diagnoses Diagnosis Preoperative general physical examination- Primary Other specified pre-operative examination Primary osteoarthritis of left hip Primary localized osteoarthrosis, pelvic region and thigh HTN, goal below 140/90 Unspecified essential hypertension Gastroesophageal reflux disease, unspecified whether esophagitis present documented in this encounter Care Teams It Compliance Manager Relationship Specialty Start Date End Date Michael Palacios MD [address] [place] [address] PCP - General 01/12/00 documented as of this encounter"
--- OUTSIDE RECORDS SUMMARY | 2023-02-04 09:06 | External Medical Summary | Summary of Care ---
Author Name Unknown Organization [facility] Address [address] [place] [address] Phone [phone] Care Team Providers Care Site Planner Name Role Phone Michael Palacios MD Primary Care Provider +1- [phone] Reason for Visit * Reason Onset Date Comments Health Maintenance 10/16/2022 Encounter Details Date Type Department Care Team Description 10/16/2022 Telephone [facility] [address] [place] [address] Michael Palacios MD [address] [place] [facility] [place] [address] Health Maintenance Allergies Active Allergy Reactions Severity Noted Date Comments Pollen 08/25/2014 documented as of this encounter (statuses as of 10/16/2022) Medications Medication Sig Dispensed Refills Start Date [...] as of this encounter (statuses as of 10/16/2022) Active Problems Problem Noted Date Class 2 obesity without seri ous comorbidity with body mass index (BMI) of 37.0 to 37.9 in adult 05/30/2010 Other chronic allergic conjunctivitis HTN, goal below 140/90 04/28/2009 Mixed rhinitis Gastroesophageal reflux disease documented as of this encounter (statuses as of 10/16/2022) Resolved Problems Problem Noted Date Resolved Date [...] as of this encounter (statuses as of 10/16/2022) Immunizations Name Administration Dates Next Due COVID-19 mRNA, LNP-s, No Pre serve, 2-Dose Series (MetaCure) 02/25/2021,01/17/2021 TD, Preservative Free 08/12/2018 TDAP (age [...] encounter Miscellaneous Notes * Telephone Encounter - Sanjuanita Guerrero LPN - 10/16/2022 10:03 AM EDT Care Gaps Comprehensive Care Outreach Last Office/Telemedicine Visit: 07/25/2022 (in office), 05/09/2022 (telemedicine) Next Office Visit: 01/15/2023 Hemoglobin AIC Results: No results found for: HEMOGLOBIN A1C Reviewed Health Maintenance below: Health Maintenance Topic Date Due Hepatitis B (1 of 3 - 3-dose series) Never done HIV Screening Never done Albumin/Creatinine Ratio Never done Hepatitis C Screening Never done COVID-19 Vaccine (3 - Pfizer series) 04/22/2021 Zoster Vaccines (1 of 2) Never done Depression Screening, Annual for Pts 12 and Over 11/07/2022 Influenza Vaccine (FLU shot) (1) 11/24/2022 Care Gap Outreach Action Taken: Outreach not indicated documented in this encounter Plan of Treatment Upcoming Encounters Date Type Specialty Care Team Description 10/31/2022 Office Visit Gastroenterology Hazel Parson CRNP [address] [place] [address] 01/15/2023 Office Visit Family Medicine Michael Palacios MD [address] [place] [facility] [place] [address] 01/25/2023 [facility] [address] [place] [facility] [place] [address] Scheduled Procedures Name Priority Associated Diagnoses Date/Ti me COLONOSCOPY FLEXIBLE PROXIMAL DIAGNOSTIC Recall Screen for colon cancer Health Maintenance Due Date Last Done Comments Hepatitis B (1 of 3 - 3-dose series) 1971 HIV Screening 11/30/1986 Albumin/Creatinine Ratio 11/30/1989 Hepatitis C Screening 11/30/1989 Cologuard 11/30/2016 Fecal Occult Blood Test 11/30/2016 Sigmoidoscopy 11/30/2016 COVID-19 Vaccine (3 - Pfizer series) 04/22/2021 02/25/2021, 01/17/2021 Zoster Vaccines (1 of 2) 11/30/2021 Depression Screening, Annual for Pts 12 and Over 11/07/2022 11/07/2021 Influenza Vaccine (FLU shot) (#1) 2022 GFR 07/27/2023 07/26/2022, 08/11/2020, 08/06/2020, Additional history exists Diabetes Screening 07/26/2025 [...] filedocumented as of this encounter Care Teams Site Planner Relationship Specialty Start Date End Date Michael Palacios MD [address] [place] [address] PCP - General 01/12/00 documented as of this encounter
--- OUTSIDE RECORDS SUMMARY | 2023-02-04 09:06 | External Medical Summary | Continuity of Care Document ---
Author Name Unknown Organization [id number] Address [address] [place] [id number] Care Team Providers Care Professor Of Radiology Name Role Phone Michael Palacios Primary Care Physician [phone] [id number] Date(s): 08/28/22 - 08/28/[address] [facility] [address] [place] [id number] [facility] [address] [address] Encounter Diagnosis Bilateral primary osteoarthritis of hip(Discharge Diagnosis) - 08/28/22 Discharge Disposition: Home or Self Care Attending Physician: MD Mixon Wayne J Allergies, Adverse Reactions, Alerts No Known Allergies Assessment and Plan Extracted from: Title:Dmitriy Mixon Author:Arturo Pichardo Date:08/28/22 IMPRESSION: Bilateral hip OA PLAN: Given the advancement of his symptoms and patient's discomfort, he would like to proceed with CHIARA. Given that his left hip pain is greater than right he would like to proceed with left CHIARA first. Other options discussed include cortisone injection The patient understood all my instructions and explanation; all their questions were satisfactorily addressed. Follow up as needed for pre-operative appointments and formal consent Medications hydrochlorothiazide-triamterene 25 mg-37.5 mg oral tablet Start: 01/31/13 11:33:00, 1 tab, PO, Daily Start Date: 01/31/13 Status: Ordered multivitamin with minerals Start: 01/31/13 11:33:00, 1 tab, PO, Daily Start Date: 01/31/13 Status: Ordered omeprazole 20 mg oral delayed release capsule Start: 01/31/13 11:32:00, 1 cap, PO, Daily Start Date: 01/31/13 Status: Ordered ZyrTEC 10 mg oral tablet Start: 01/31/13 11:33:00, 1 tab, PO, Daily, PRN: as needed for allergy symptoms Start Date: 01/31/13 Status: Ordered Mental Status 08/28/22 Barriers to Learning one year None evide nt Mandatory Health Literacy Documentation Yes Health Literacy Communication Barriers N ever Primary Language South Korean Problem List Condition Confirmation Course Effective Dates Status H ealth Status Informant Lumbar disc prolapse with radiculopathy Confirmed Active Bilateral primary osteoarthritis of hip Confirmed Active Weight monitoring Confirmed Active Diagnosis Diagnosis Type Effective Dates Health Status Clinical Service Informant Bilateral primary osteoarthritis of hip Discharge Diagnosis 08/28/22 Procedures Procedure Date Related Diagnosis Body Site Status Sebaceous cyst removal 1 01/03/13 Completed Tonsillectomy, primary or se condary; age 12 or over 1986 Completed Varicocele Completed [place] tooth 2 Completed 1central upper back 2x 4 Vital Signs Most recent to oldest [Reference Range]: 1 Height 184 cm (08/28/22 8:25 AM) Patient Weight 118 kg (08/28/22 8:25 AM) Body Mass Index 34.85 kg/m2 (08/28/22 8:25 AM) Social History Social History Type Response Smoking Status Never smoked cigaret reba Sex Male Ortho Outpt Note * Jayde Pichardo: PERFORM, MODIFY Event Display: Ortho Outpt Note Authored Date: [id number] Primary Care Provider MD Suzanne, Michael Wolf Chief Complaint Bilateral hip pain increasing History of Present Illness [id number] Katheryn presents today forbilateral hip pain. He was taking diclofenac for bilateral hip pain but stopped due to a change in insurance coverage. He only takes ibuprofen occasionally for pain. He has tried and intraarticular cortisone injection without relief. Patient has significantly modified his movement and activities due to b/l hip pain including slip-on shoes. Review of Systems Complete 14 system review in shared EMR Physical Exam Vitals & Measurements HT:184cm WT:118.000kg(Dosing) WT:118kg BMI:34.85 Focus on bilateral lower extremity: Femoral and sciatic nerve function intact. Hip ROM: Flexioncontracture 15b/l / No IR/ ER 15- 20 Diagnostic Results I obtained and personally interpreted views of both hips which shows bilateral hip OA. Assessment/Plan IMPRESSION: Bilateral hip OA PLAN: Given the advancement of his symptoms and patient's discomfort, he would like to proceed with CHIARA. Given that his left hip pain is greater than right he would like to proceed with left CHIARA first. Other options discussed include cortisone injection The patient understood all my instructions and explanation; all their questions were satisfactorilyaddressed. Follow up as needed for pre-operative appointments and formal consent Attestation IJayde, scribing for and in the presence of, Dmitriy Mixon, on this date,08/28/2022 08:41:39. Problem List/Past Medical History Ongoing Bilateral primary osteoarthritis of hip Lumbar disc prolapse with radiculopathy Weight monitoring Procedure/Surgical History Sebaceous cyst removal (01/03/2013)Tonsillectomy, primary or secondary; age 12 or over (1986)VaricoceleWisdom tooth Medications cetirizine(ZyrTEC 10 mg oral tablet), 10 mg= 1 tab, PO, Daily, PRN hydrochlorothiazide-triamterene(hydrochlorothiazide-triamterene 25 mg-37.5 mg oral tablet), 1 tab, PO, Daily multivitamin with minerals, 1 tab, PO, Daily omeprazole(omeprazole 20 mg oral delayed release capsule), 20 mg= 1 cap, PO, Daily Allergies NKA Social History Smoking Status Never smoked cigarettes Alcohol - No Risk Use:Current Type:Beer Frequency:1-2 times per month Average drinks per episode in last year:1 Tobacco - Denies Tobacco Use Family History Nephrectomy: Mother. Health Status Family Member(s) Father: History is unknown Recommendations Health Maintenance Pending(in the next year) OverDue Adult Influenza Vaccine due09/23/21and every 1year Satisfied(in the past 1 year) There are no satisfied recommendations within the defined date range Electronic Signature on File Electronically Reviewed/Signed by: Jayde Pichardo Author Signature Dt/Tm:08/28/2022 09:26 AM Electronically Reviewed/Signed by: Dmitriy Mixon MD Cosigner Signature Dt/Tm: 08/28/2022 09:28 AM Senior Java Software Engineer for Clinical Affairs, [facility] Nav Professor in Orthopaedics Concrete Puddler, [facility] [place] Patient Care team information Care Team Personnel Name: MD Palacios Brett R Position: Referring DIRECT Member Role: Lifetime Relationship Address: Address: [address] [facility] [place] [address] [place] Name: EDUARDO [place] Christina L Position: Physician - Podiatry Member Role: Lifetime Relationship Address: Address: [address] [place] [address] Care Team Related Persons Name: WILDER HENRIQUEZ Address: [address] [place] [id number]
--- OUTSIDE RECORDS SUMMARY | 2023-02-04 09:06 | External Medical Summary | Summary of Care ---
Author Name Unknown Organization [facility] Address [address] [place] [address] Phone [phone] Care Team Providers Care Director Of Services Name Role Phone Derick Taylor MD Primary Care Provider [phone]- [phone] Reason for Visit * Reason Comments eRx-Medication Refill Encounter Details Date Type Department Care Team Description 10/03/2022 Refill [facility] [address] [place] [address] Derick Taylor MD [address] [place] [address] Mixed rhinitis Allergies Active Allergy Reactions Severity Noted Date Comments Pollen 08/25/2014 documented as of this encounter (statuses as of 10/04/2022) Medications Medication Sig Dispensed Refills Start Date End Date Status fexofenadine (YOVANI) 180 MG TabletIndication s:in am Take 1 Tablet by mouth daily as needed for Allergies. 30 Tab 11 07/09/2017 Active One-A-Day Mens 50+ Advantage Oral Tablet Take by mouth . 0 Active Proventil HFA 108 (90 Base) MCG/ACT Inhalation Aerosol SolutionIndicati ons:Bronchitis, complicated Inhale by mouth 2 Puffs every 4 hours as needed for Wheezing. 18 g 1 12/26/2021 Active Additional Information Patient not taking.Reported on 04/13/2022 Omeprazole 40 MG Oral Capsule Delayed Release (PriLOSEC)Indica tions:Gastroesop hageal reflux disease without esophagitis TAKE 1 CAPSULE [...] Active Fluticasone Propionate 50 MCG/ACT Nasal Suspension (Flonase)Indicat ions:as needed Administer 2 Sprays into each nostril daily. 48 g 1 10/04/2022 Active Fluticasone Propionate 50 MCG/ACT Nasal Suspension (Flonase)Indicat ions:Mixed rhinitis Administer 2 Sprays into each nostril daily. 48 g 1 05/18/2021 10/05/19 23 Discontinued documented as of this encounter (statuses as of 10/04/2022) Active Problems Problem Noted Date Class 2 obesity without seri ous comorbidity with body mass index (BMI) of 37.0 to 37.9 in adult 05/30/2010 Other chronic allergic conjunctivitis HTN, goal below 140/90 04/28/2009 Mixed rhinitis Gastroesophageal reflux disease documented as of this encounter (statuses as of 10/04/2022) Resolved Problems Problem Noted Date Resolved Date [...] as of this encounter (statuses as of 10/04/2022) Immunizations Name Administration Dates Next Due COVID-19 [...] encounter Miscellaneous Notes * Telephone Encounter - Elsy Medrano RPh - 10/04/2022 10:52 AM EDTSigned Prescriptions: Disp Refills Fluticasone Propionate 50 MCG/ACT Nasal [place]*48 g 1 Sig: Administer 2 Sprays into each nostril daily.Authorizing Provider: DERICK TAYLOR User: ELSY MEDRANO documented in this encounter Plan of Treatment Upcoming Encounters Date Type Specialty Care Team Description 10/31/2022 Office Visit Gastroenterology Hazel Parson CRNP [address] [place] [address] 01/15/2023 Office Visit Family Medicine Derick Taylor MD [address] [place] [address] 01/25/2023 Office Visit Family Medicine Derick Taylor MD [address] [place] [facility] [place] [address] Scheduled Procedures Name Priority Associated Diagnoses Date/Ti [...] as of this encounter Visit Diagnoses Diagnosis Mixed rhinitis Chronic rhinitis documented in this encounter Care Teams Director Of Services Relationship Specialty Start Date End Date Derick Taylor MD [address] [place], [place] [id number] PCP - General 01/12/00 documented as of this encounter
--- OUTSIDE RECORDS SUMMARY | 2023-02-04 09:06 | External Medical Summary | Summary of Care ---
Author Name Unknown Organization [facility] Address [address] [place] [address] Phone [phone] Care Team Providers Care Grey Percher Name Role Phone Michael Palacios MD Primary Care Provider +1- [phone] Reason for Visit * Reason Onset Date Comments Forms Request 01/25/2023 Encounter Details Date Type Department Care Team (Late st Contact Info) Description 01/25/2023 Telephone [facility] [address] [place] [facility] [place] [address] Michael Palacios MD [address] [place] [address] Forms Request Allergies Active Allergy Reactions Criticality Noted Date [...] mRNA, LNP-s, No Pre serve, 2-Dose Series ([employer]) 02/25/2021,01/17/2021 TD, Preservative Free 08/12/2018 TDAP (age [...] encounter Miscellaneous Notes * Telephone Encounter - Jana Louis - 01/25/2023 11:17 AM EDT 01/25/23 Pre-op paperwork was successfully sent along with OVN from 01/15/23 at 11/20 am. * Telephone Encounter - Michael Palacios MD - 01/25/2023 7:30 AM EDT Pt's preop form completed and at my desk. Please fax with my note from 01/15/23. documented in this encounter Plan of Treatment Upcoming Encounters Date Type Department Care Team (Late st Contact Info) Description 07/17/2023 3:00 PM EDT Office Visit [address] [address] Michael Palacios MD [address] [place] [address] Scheduled Procedures Name Priority Associated [...] Screening 11/07/2022 11/07/2021 COVID-19 Vaccine (3 - 2022- season) 2022 02/25/2021, 01/17/2021 Influenza Vaccine (FLU [...] filedocumented as of this encounter Care Teams Grey Percher Relationship Specialty Start Date End Date Michael Palacios MD [address] [place] [address] PCP - General 01/12/00 documented as of this encounter
--- OUTSIDE RECORDS SUMMARY | 2023-02-04 09:06 | External Medical Summary | Summary of Care ---
Author Name Unknown Organization [facility] Address [address] [place] [address] Phone [phone] Care Team Providers Care Biophysics Scientist Name Role Phone Derick Taylor MD Primary Care Provider +1- [phone] Reason for Visit * Reason Comments eRx-Medication Refill Encounter Details Date Type Department Care Team ([facility] st Contact Info) Description 01/26/2023 Refill [facility] [address] [place] [facility] [place] [place] [address] Derick Taylor MD [address] [place] [address] Encounter for long-term (current) use of medications*; Gastroesophageal reflux disease without esophagitis Allergies Active Allergy Reactions Criticality Noted Date Comments Pollen 08/25/2014 documented as of this encounter (statuses as of 01/27/2023) Medications Medication Sig Dispensed Refills Start Date [...] Additional Information Patient not taking.Reported on 04/13/2022 Triamterene-HCTZ 75-50 MG Oral Tablet (Maxzide) Take [...] nostril daily. 48 g 1 10/04/2022 Active Omeprazole 40 MG Oral Capsule Delayed Release (PriLOSEC)Indica tions:Gastroesop hageal reflux disease without esophagitis TAKE 1 CAPSULE DAILY 90 Capsule 3 01/27/2023 Active Omeprazole 40 MG Oral Capsule Delayed Release (PriLOSEC)Indica tions:Gastroesop hageal reflux disease without esophagitis TAKE 1 CAPSULE DAILY 90 Capsule 3 01/02/2022 01/28/20 23 Discontinued documented as of this encounter (statuses as of 01/27/2023) Active Problems Problem Noted Date Diagnosed Date Other chronic allergic conjunctivitis 05/18/2009 HTN, goal below 140/90 04/28/2009 Mixed rhinitis Gastroesophageal reflux disease documented as of this encounter (statuses as of 01/27/2023) Resolved Problems Problem Noted Date Diagnosed Date [...] as of this encounter (statuses as of 01/27/2023) Immunizations Name Administration Dates Next Due COVID-19 [...] money to buy more. Never true 01/12/20 23 Within the past 12 months, t he [...] encounter Miscellaneous Notes * Telephone Encounter - Renee Pinzon RPh - 01/27/2023 5:17 PM EDTSigned Prescriptions: Disp Refills Omeprazole 40 MG Oral Capsule Delayed Rele*90 Cap*3 Sig: TAKE 1 CAPSULE DAILYAuthorizing Provider: DERICK TAYLOR User: RENEE PINZON * Telephone Encounter - Renee Pinzon [facility] - 01/27/2023 5:17 PM EDT Per refill protocol patient needs magnesium and vitamin B-12 labs on file within the past 2 years while using PPIs. Lab work ordered. Patient may obtain with next routine labs. Renee Isaac [facility] Clinical Pharmacist [facility] ([facility]) (Formerly [facility]pharm[facility]) [phone] documented in this encounter Plan of Treatment Upcoming Encounters Date Type Department Care Team (Late st Contact Info) Description 07/17/2023 3:00 PM EDT Office Visit [facility] [address] [place] [address] Derick Taylor MD [address] [place] [address] Scheduled Orders Name Type Priority Associated Diagnoses Orde r Schedule MAGNESIUM Lab Routine Encounter for long-term (current) use of medications Expected: 02/03/2023 (Approximate), Expires: 01/28/2024 VITAMIN B12 Lab Routine Encounter for long-term (current) use of medications Expected: 02/03/2023 (Approximate), Expires: 01/28/2024 Scheduled Procedures Name Priority Associated Diagnoses Date/Ti [...] 11/30/2021 Depression Screening 11/07/2022 11/07/2021 COVID-19 Vaccine ( season) 2022 02/25/2021, 01/17/2021 Influenza Vaccine (FLU [...] as of this encounter Visit Diagnoses Diagnosis Encounter for long-term (current) use of medications- Primary Encounter for long-term (current) use of other medications Gastroesophageal reflux disease without esophagitis Esophageal reflux documented in this encounter Care Teams Biophysics Scientist Relationship Specialty Start Date End Date Derick Taylor MD [address] [place] [address] PCP - General 01/12/00 documented as of this encounter
--- OUTSIDE RECORDS SUMMARY | 2023-02-04 09:06 | External Medical Summary | Continuity of Care Document ---
Author Name Unknown Organization [id number] Address [address] [place] [phone] Care Team Providers Care Payroll And Benefits Manager Name Role Phone Michael Palacios Primary Care Physician [phone] [id number] Date(s): 01/12/23 - 01/12/23 [facility] [address] [place] [id number] [facility] [address] [place] [address] Encounter Diagnosis Bilateral primary osteoarthritis of hip(Discharge Diagnosis) - 01/12/23 Discharge Disposition: Home or Self Care Attending Physician: FILIPPO Beltran, Neftali Gordon Referring Physician: MD Apurva, Dmitriy Allen Allergies, Adverse Reactions, Alerts No Known Allergies Medications dicyclomine 10 mg oral capsule Start: 01/12/23 8:12:00 EDT, 1 cap, PO, qid, prn Start Date: 01/12/23 Status: Ordered Flonase 50 mcg/inh nasal spray Start: 01/12/23 8:12:00 EDT, prn Start Date: 01/12/23 Status: Ordered hydrochlorothiazide-triamterene 25 mg-37.5 mg oral tablet Start: [...] Start Date: 01/31/13 Status: Ordered Mental Status 01/12/23 Barriers to Learning one year None evide nt Mandatory Health Literacy Documentation Yes Health Literacy Communication Barriers N ever Primary Language Norwegian Problem List Condition Confirmation Course Effective Dates Status H ealth Status Informant High blood pressure Confirmed Active Lumbar disc prolapse with radiculopathy Confirmed Active Bilateral primary osteoarthritis of hip Confirmed Active Weight monitoring Confirmed Active Diagnosis Diagnosis Type Effective Dates Health Status Clinical Service Informant Bilateral primary osteoarthritis of hip Discharge Diagnosis 01/12/23 Procedures Procedure Date Related Diagnosis Body Site Status Sebaceous cyst removal 1 01/03/13 Completed Tonsillectomy, primary or se condary; age 12 or over 1986 Completed Finger 2 Completed Varicocele Completed [place] tooth 3 Completed Wrist 4 Completed 1central upper back 2left pinky 3x 4 4right Vital Signs Most recent to oldest [Reference Range]: 1 Height 183 cm (01/12/23 8:11 AM) Patient Weight 120 kg (01/12/23 8:11 AM) Body Mass Index 35.83 kg/m2 (01/12/23 8:11 AM) Temperature [36.5-37.9 DegC] 36.5 DegC (01/12/23 8:11 AM) Heart Rate 88 bpm (01/12/23 8:11 AM) Blood Pressure 152/90mmHg (01/12/23 8:11 AM) Cuff Pulse Pressure 62 mmHg (01/12/23 8:11 AM) Social History Social History Type Response Smoking Status Never smoked cigaret reba Sex Male Patient Care team information Care Team Personnel Name: MD Suzanne, Michael Wolf Position: Referring DIRECT Member Role: Lifetime Relationship Address: Address: [address] [place] [address] [place] Name: EDUARDO [place] Christina L Position: Physician - Podiatry Member Role: Lifetime Relationship Address: Address: [address] [address] Care Team Related Persons Name: WILDER HENRIQUEZ Address: home [address] [place] [address] [place] [phone]
== END 2023-02-01 11:45 | disposition home or self-care (01) ==
LOC: 3W 05:02 → ASU 05:02

== ENCOUNTER 2024-01-30 06:28 | Observation (INO) ==
--- NOTE | 2024-01-22 10:47 | Anesthesiology Consultation ---
Date of Service January 22, 2024 Assessment & Plan (1) Encounter for pre-operative examination: Plan - Outpatient joint assessment: Patient is currently scheduled for inpatient pathway. If re-evaluated and patient/surgeon requests outpatient pathway, patient is acceptable candidate for outpatient joint program from anesthesia standpoint pending surgeon's office assessment of pt motivation/support/completion of same day joint program preop requirements. - Per revenue integrity analyst on 01/22/24: No known infectious disease contacts, current infectious disease symptoms in past 10 days or COVID positive test result in the past 30 days. Chart Review Chart Review: Acceptable Risk for Surgery and Patient NOT seen in Pre Admission Testing History Surgery Operation Date: 01/30/24 07:00 Proposed Procedures p Right Total Hip Arthroplasty with Dual Mobility Implant - Dmitriy Mixon MD Height/Weight Height: 6 ft Weight: 117.934 kg Allergies Allergy/AdvReac Type Severity Reaction Status Date / Time grass pollen Allergy Mild Sneezing Verified 01/22/24 10:17 tree and shrub pollen Allergy Mild Watery Eye Verified 01/22/24 10:17 weed pollen Allergy Mild Sneezing Verified 01/22/24 10:17 Medications Home Medications Medication Instructions Recorded Confirmed Last Taken cetirizine 10 mg tablet 10 mg PO DAILY PRN Allergy Symptoms 07/05/22 01/22/24 01/30/23 05:30 dicyclomine 10 mg capsule 10 mg PO BID PRN Abdominal Pain 07/05/22 01/22/24 01/30/23 05:30 fluticasone propionate 50 1 spray intranasal DAILY PRN 07/05/22 01/22/24 01/30/23 05:30 mcg/actuation nasal Allergy Symptoms spray,suspension (Allergy Relief (fluticasone)) multivitamin with minerals 1 tab PO DAILY 07/05/22 01/22/24 01/30/23 05:30 omeprazole 40 mg capsule,delayed 40 mg PO QAM 07/05/22 01/22/24 01/31/23 04:30 release triamterene 75 1 tab PO QAM 01/05/23 01/22/24 01/30/23 05:30 mg-hydrochlorothiazide 50 mg tablet azelastine 137 mcg (0.1 %) nasal 2 spray intranasal DAILY #90 mL 03/23/23 01/22/24 Unknown spray Past Medical History Medical History Chronic rhinitis Environmental and seasonal allergies GERD (gastroesophageal reflux disease) controlled, stable per pt HTN (hypertension) Hx of bronchitis IBS (irritable bowel syndrome) Nausea and vomiting after administration of anesthetic agent denies needing scop patch Sleep apnea "mild", has not received CPAP device yet Past Family History Family History Grandfather (Maternal) Hypertension Heart disease Grandmother (Maternal) Hypertension Stroke Uncle Cancer Asthma Mother No problems noted. Past Surgical History Surgical History H/O sinus surgery H/O wrist surgery right History of esophagogastroduodenoscopy (EGD) History of left hip replacement History of tonsillectomy and adenoidectomy Hx of colonoscopy Hx of hand surgery finger Status post surgical removal of nail matrix of toe Social History Smoking Status: Never smoker Do You Dip or Chew Tobacco: No Hx Alcohol Use: Yes Alcohol type: beer alcohol intake frequency: a few times a month Hx Substance Use: No substance use type: does not use Lab Results Anesthesia Preop Results Results Anesthesia Widget: WBC 8.92 K/ul (4.8-10.8) 01/21/24 Hgb 15.8 g/dl (14.0-18.0) 01/21/24 Hct 44.2 % (42.0-52.0) 01/21/24 Plt 297 K/uL (130-400) 01/21/24 Na 137 mmol/L (136-145) 01/21/24 K 3.5 mmol/L (3.5-5.1) 01/21/24 Cl 103 mmol/L (98-107) 01/21/24 CO2 26 mmol/L (21-32) 01/21/24 BUN 19 mg/dl (6-23) 01/21/24 Creat 1.83 mg/dl (0.6-1.4) H 01/21/24 Glucose Level 76 mg/dl (70-99(Fasting)) 01/21/24 PTT 26 Seconds (21-31) 01/21/24 Urine Color Yellow 01/21/24 Urine Appearance Clear (Clear) 01/21/24 Urine pH 6.0 (4.5-7.5) 01/21/24 Urine Specific [place] 1.022 (1.000-1.030) 01/21/24 Urine Protein Negative (Negative) 01/21/24 Urine Glucose (UA) Negative (Negative) 01/21/24 Urine Ketones Trace (Negative) H 01/21/24 Urine Blood Negative (Negative) 01/21/24 Urine Nitrite Negative (Negative) 01/21/24 Urine Bilirubin Negative (Negative) 01/21/24 Urine Urobilinogen Negative (Negative) 01/21/24 Urine Leukocyte Esterase Negative (Negative) 01/21/24 Blood Type O Positive 01/21/24 Antibody Screen NEGATIVE 01/21/24 Testing Electrocardiogram Date: 01/21/24 NSR, rate 70 bpm Chest X-Ray Date: 01/21/24 No acute cardiopulmonary findings.
[2024-01-30] MEDS ORDERED: ROPIVACAINE 0.5% 5 MG/ML 30 ML VIAL ONE (06:32)
--- NOTE | 2024-01-30 06:33 | History & Physical Bridge Note ---
Date of Service January 30, 2024 History & Physical Bridge Note I have examined the patient, reviewed the History & Physical and in the interval since the performance of the History & Physical I have noted the following changes of clinical significance:consent and site verified . no changes noted
--- NOTE | 2024-01-30 06:54 | History & Physical Bridge Note ---
Date of Service January 30, 2024 History & Physical Bridge Note I have examined the patient, reviewed the History & Physical and in the interval since the performance of the History & Physical I have noted the following changes of clinical significance: consent and site verified.no changes noted
[2024-01-30] MEDS: LR 500ML BOLUS, THEN 15ML/HR IV SCH (06:55)
[2024-01-30] MEDS: LR 60ML/HR IV SCH (06:56)
[2024-01-30] MEDS ORDERED: ePHEDrine sulfate 50 MG/ML AMP IV PRN (08:06)
[2024-01-30] MEDS ORDERED: ATROPINE SULFATE 0.1 MG/ML 10ML SYR IV PRN (08:06)
[2024-01-30] MEDS ORDERED: ONDANSETRON INJ 2 MG/ML 2 ML VIAL IV PRN ×2 (08:06→12:49)
[2024-01-30] MEDS ORDERED: LIDOCAINE 2% 2 ML VIAL/AMP(20MG/ML) INFIL ONE (08:21)
[2024-01-30] MEDS ORDERED: PROPOFOL IV EMULSION 10 MG/ML 20 ML VIAL IV ONE ×3 (08:21→11:04)
[2024-01-30] MEDS ORDERED: ONDANSETRON INJ 2 MG/ML 2 ML VIAL ONE (08:21)
[2024-01-30] MEDS ORDERED: MIDAZOLAM HCL 1 MG/ML 2ML VIAL ONE (08:22)
[2024-01-30] MEDS ORDERED: fentaNYL citrate PF 100 MCG/2 ML VIAL ONE (08:22)
[2024-01-30] MEDS: TRANEXAMIC ACID 1,000 MG **IV Pre-op IV SCH (08:40)
[2024-01-30] MEDS: ceFAZolin 3000MG 3,000 MG/72.5 ML BAG IV SCH (09:00)
[2024-01-30] MEDS ORDERED: KETAMINE HCL 10MG/ML SYR ONE (09:25)
[2024-01-30] MEDS: ORTHO JOINT ANESTHETIC ONE (09:48)
[2024-01-30] MEDS: TRANEXAMIC ACID 1,000 MG **IV Intra-op IV SCH (10:42)
--- OUTSIDE RECORDS SUMMARY | 2024-01-30 10:51 | External Medical Summary | Summary of Care ---
Author Name Unknown Organization [facility] Address [address] [place] [address] Phone [phone] Care Team Providers Care Kosher Dietary Service Manager Name Role Phone Michael Palacios MD Primary Care Provider [phone]- [phone] Reason for Visit * Reason Comments pre-op exam Pre op visit.No conc erns. Encounter Details Date Type Department Care Team (Late st Contact Info) Description 01/15/2024 11:40 AM EDT [facility] [address] [facility] [place] [address] Michael Palacios MD [address] [place] [address] Preoperative general physical examination*; HTN, goal below 140/90; Gastroesophageal reflux disease, unspecified whether esophagitis present Allergies Active Allergy Reactions Criticality Noted Date Comments Pollen 08/25/2014 documented as of this encounter (statuses as of 01/29/2024) Medications Medication Sig Dispensed Refills Start Date End Date Status fexofenadine (YOVANI) 180 MG TabletIndication s:in am Take 1 Tablet by mouth daily as needed for Allergies. 30 Tab 11 8 Active One-A-Day Mens 50+ Advantage Oral Tablet Take by mouth . Active Fluticasone Propionate 50 MCG/ACT Nasal Suspension (Flonase)Indicat ions:Mixed rhinitis USE 2 SPRAYS IN EACH NOSTRIL DAILY 48 g 3 3 Active Ibuprofen 200 MG Oral Tablet (Motrin IB)Indications:C ellulitis, face,Swelling of left side of face Take 2 Tablets by mouth every 8 hours as needed for Other (swelling face). 4 Active Dicyclomine HCl 10 MG Oral Capsule (Bentyl) TAKE 1 CAPSULE FOUR TIMES A DAY IF NEEDED FOR ABDOMINAL PAIN OR BLOATING 360 Capsule 4 Active Azelastine & Fluticasone 137 & 50 MCG/ACT Nasal Therapy Pack daily. 3 Active Proventil HFA 108 (90 Base) MCG/ACT Inhalation Aerosol SolutionIndicati ons:Fever in other diseases,Acute cough Inhale 2 Puffs by mouth in the morning and 2 Puffs at noon and 2 Puffs in the evening and 2 Puffs before bedtime. 6.7 g 4 Active Additional Information Patient not taking.Reported on 01/15/2024 Montelukast Sodium 10 MG Oral Tablet (Singulair)Indic ations:Allergic rhinitis, unspecified seasonality, unspecified trigger Take 1 Tablet by mouth in the morning. 90 Tablet 3 4 Active Triamterene-HCTZ 75-50 MG Oral Tablet (Maxzide) TAKE 1 TABLET IN THE MORNING 90 Tablet 1 4 Active Amoxicillin 500 MG Oral Tablet TAKE 4 TABLETS BY MOUTH 1 HOUR PRIOR TO APPOINTMENT 4 Active Omeprazole 40 MG Oral Capsule Delayed Release (PriLOSEC)Indica tions:Gastroesop hageal reflux disease without esophagitis TAKE 1 CAPSULE DAILY 90 Capsule 3 3 01/22/20 24 Discontinued Benzonatate 100 MG Oral CapsuleIndicatio ns:Fever in other diseases,Acute cough Take 1 Capsule by mouth 3 times a day as needed for Cough. 30 Capsule 1 4 01/15/20 24 Discontinued(Med ication List Clean Up) Azithromycin 250 MG Oral Tablet (Zithromax Z-Aroldo) Take two tablets by mouth on first day, then 1 tablet daily until gone 6 Tablet 4 01/15/20 24 Discontinued(Med ication List Clean Up) documented as of this encounter (statuses as of 01/29/2024) Active Problems Problem Noted Date Diagnosed Date Other chronic allergic conjunctivitis 05/18/2009 HTN, goal below 140/90 04/28/2009 Mixed rhinitis Gastroesophageal reflux disease documented as of this encounter (statuses as of 01/29/2024) Resolved Problems Problem Noted Date Diagnosed Date [...] as of this encounter (statuses as of 01/29/2024) Immunizations Name Administration Dates Next Due COVID-19 mRNA, LNP-s, No Pre serve, 2-Dose Series (MitoProd) 02/25/2021,01/17/2021 TD, Preservative Free 08/12/2018 TDAP, Age 7 and older, IM (Adacel) 06/26/2008 06/26/2018 documented as of this encounter Social History Tobacco Use Types Packs/Day Years Used Date Smoking Tobacco: Never Passive Smoke Exposure: Past Smokeless Tobacco: Never Comments: smokes Alcohol Use Standard Drinks/Week Comments Yes 0 (1 standard drink = 0.6 oz pur e alcohol) 2 beers per month PHQ-2 Answer Date Recorded PHQ Adult Total Score 0 07/17/2023 Hunger Vital Sign Answer Date Recorded Within the past 12 months, y ou worried that your food would run out before you got the money to buy more. Never true 01/12/20 23 Within the past 12 months, t he food you bought just didn't last and you didn't have money to get more. Never true 01/11/2023 Childcare Answer Date Recorded Do you feel overwhelmed with taking care of a child, family member or friend? No 01/11/2023 Does your family need help f inding childcare? (Household - for ages 0-17 years) Not on file 01/11/2023 Clothing Answer Date Recorded Have you been unable to get clothing when it was really needed? No 01/11/2023 Is your family able to get c lothes or diapers when needed? (Household - for ages 0-17 years) Not on file 01/11/2023 Personal Safety Answer Date Recorded Do you feel unsafe or have concerns for your saf ety? No 01/11/2023 Do you have concerns for you r family's safety? (Household - for ages 0-17 years) Not on file 01/11/2023 Utilities Answer Date Recorded Do you have trouble paying y our heating, water, or electric bill? (Adult - for ages 18 years and over) Not on file 01/15/2024 Is your family able to pay t he heat, water, or electric bill? (Household - for ages 0-17 years) Not on file 01/15/2024 Does your family have access to good internet? (Household - for ages 0-17 years) Not on file 01/15/2024 Employment Status Answer Date Recorded Are you unemployed or without regular income? No 01/11/2023 Does the household have a re gular source of income? (Household - for ages 0-17 years) Not on file 01/11/2023 Social Connections Answer Date Recorded How often do you feel lonely or isolated from those around you? (Adult - for ages 18 years and over) Not on file 01/15/2024 Financial Resource Strain Answer Date R ecorded Do you have any trouble payi ng for your medications, or do you think you might in the future? No 01/11/2023 Does your family have troubl e paying for medicine? (Household - for ages 0-17 years) Not on file 01/11/2023 Transportation Needs Answer Date Record ed READ ONLY Do you have troubl e getting a ride to medical visits or work? Never True 01/11/2023 Does your family have a hard time getting a ride to doctors visits? (Household - for ages 0-17 years) Not on file 01/11/2023 Has lack of transportation k ept you from medical appointments, meetings, work, or from getting things needed for daily living? Check all that apply. (Adult - for ages 18 years and over) Not on file 01/11/2023 Do you (or your family) have trouble finding or paying for a ride (transportation)? (Household - for ages 0-17 years) Not on file 01/11/2023 Housing Stability Answer Date Recorded Do you currently live in a s helter or have no steady place to sleep at night? No 01/11/2023 READ ONLY Do you think you a re at risk of becoming homeless? No 01/11/2023 Does your family worry about paying for your home or becoming homeless? (Household - for ages 0-17 years) Not on file 1 Are you homeless or worried that you might be in the future? (Adult - for ages 18 years and over) Not on file Are you (or your family) radha eless or worried that you might be in the future? (Household - for ages 0-17 years) Not on file Food Insecurity Answer Date Recorded Do you need food for this week? No 01/11/2023 Are you able to get enough f ood for your family? (Household - for ages 0-17 years) Not on file 01/11/2023 Does your family need food t his week? (Household - for ages 0-17 years) Not on file 01/11/2023 Do you always have enough fo od for your family? (Household - for ages 0-17 years) Not on file 01/11/2023 Sex and Gender Information Value Date Recorded Sex Assigned at Male 08/12/2018 9:22 AM EDT Gender Identity Male 08/12/2018 9:22 AM EDT Sexual Orientation Straight 08/12/2018 9: 22 AM EDT Job Start Date Occupation Industry Not on file Not on file Not on file documented as of this encounter Last Filed Vital Signs Vital Sign Reading Time Taken Comments Blood Pressure 128/86 01/15/2024 11:30 AM EDT Pulse 78 01/15/2024 11:30 AM EDT Temperature 36.7 C (98 F) 01/15/2024 11: 30 AM EDT Respiratory Rate 16 01/15/2024 11:3 0 AM EDT Oxygen Saturation 97% 01/15/2024 11: 30 AM EDT Inhaled Oxygen Concentration - - Weight 124.2 kg (273 lb 12.8 oz) 2023 11:30 AM EDT Height 182.9 cm (6') 01/15/2024 11:30 AM EDT Body Mass Index 37.13 01/15/2024 11:30 AM EDT documented in this encounter Progress Notes * Michael Palacios MD - 01/15/2024 1:05 PM EDT Subjective: Emanuel Ellison is a 53 year old male here today for Chief Complaint Patient presents with pre-op exam Pre op visit. No concerns. Patient presents for preoperative medical evaluation prior to undergoing right total hip arthroplasty. Procedure is planned to be done at [facility] on January 30, [address] Sandoval. Patient had recent left hip arthroplasty on January 31, 2023. He recovered well from that. No complications during procedure or after. Patient is scheduled to have preoperative studies done at [facility]. Those studies are pending at this time. He denies any significant changes in his health. He denies any current symptoms suggestive of infection or cardiac or pulmonary disease. No fever, cough, shortness of breath, chest pain, sore throat,abdominal pain, dysuria, urinary frequency, diarrhea. He has not had any difficulties with anesthesia in the past. He enjoys good exercise tolerance in his limited by his orthopedic conditions but can still walk up2 flights of steps without stopping to rest. Past Medical History: Diagnosis Date Gastroesophageal reflux disease HTN, goal below 140/90 03/26/2004 Mixed rhinitis Sleep apnea, obstructive Past Surgical History: Procedure Laterality Date COLONOSCOPY, DIAGNOSTIC (RECTUM) 04/13/2022 diverticulosis in sigmoid, non-bleeding internal hemorrhoids / no specimens collected / 10 year recall / COLONOSCOPY FLEXIBLE PROXIMAL DIAGNOSTIC performed by Ingrid Andrade MD at [facility] EGD, FLEXIBLE, DIAGNOSTIC 11/14/2021 z-line 40 cm from incisors, otherwise normal / biopsies normal / ESOPHAGOGASTRODUODENOSCOPY (EGD), FLEXIBLE, TRANSORAL, DIAGNOSTIC performed by Taya Franks MD at [facility] MISCELLANEOUS ORDER 12/24/2002 endoscopic sinus surgery - [...] TAKE 1 CAPSULE DAILY 90 Capsule 3 Fluticasone Propionate 50 MCG/ACT Nasal Suspension (Flonase) USE 2 SPRAYS IN EACH NOSTRIL DAILY 48 g 3 Dicyclomine HCl 10 MG Oral Capsule (Bentyl) TAKE 1 CAPSULE FOUR TIMES A DAY IF NEEDED FOR ABDOMINALPAIN OR BLOATING 360 Capsule 0 Azelastine & Fluticasone 137 & 50 MCG/ACT Nasal Therapy Pack daily. Montelukast Sodium 10 MG Oral Tablet (Singulair) Take 1 Tablet by mouth in the morning. 90 Tablet 3 Triamterene-HCTZ 75-50 MG Oral Tablet (Maxzide) TAKE 1 TABLET IN THE MORNING 90 Tablet 1 Amoxicillin 500 MG Oral Tablet TAKE 4 TABLETS BY MOUTH 1 HOUR PRIOR TO APPOINTMENT Ibuprofen 200 MG Oral Tablet (Motrin IB) Take 2 Tablets by mouth every 8 hours as needed for Other (swelling face). Proventil HFA 108 (90 Base) MCG/ACT Inhalation Aerosol Solution Inhale 2 Puffs by mouth in the morning and 2 Puffs at noon and 2 Puffs in the evening and 2 Puffs before bedtime. (Patient not taking: Reported on 01/15/2024) 6.7 g 0 No current facility-administered medications for this visit. Objective: BP 128/86 | Pulse 78 | Temp 36.7 C (98 F) (Tympanic) | Resp 16 | Ht 1.829 m (6') | Wt 124.2 kg (273 lb 12.8 oz) | SpO2 97% | BMI 37.13 kg/m | BSA 2.51 m GEN: NAD HEENT: Benign NECK: Supple with no LAD, TM, JVD CHEST: CTA B CV: RRR ABD: Soft, NT/ND, No HSM, NABS EXT: No c,c,e Assessment and Plan: Preoperative general physical examination (Primary) HTN, goal below 140/90 Gastroesophageal reflux disease, unspecified whether esophagitis present -patient is stable at the current time and an acceptable risk for right total hip arthroplasty. Will still need to review his preoperative studies that he has not yet had completed. He will also callfor any new or worsening symptoms prior to the surgery date. 30 min with pt, chart review, documentation Michael Palacios MD 01/29/24 Addendum [facility]oop labs from [facility] reviewed. Patient is medically cleared to proceed with surgery. Avoid NSAIDs and recheck kidney function after surgery. Michael Palacios MD documented in this encounter Nursing Notes * Zenia Powell MED ASSIST - 01/15/2024 11:34 AM EDT The patient has been properly identified by confirmation of name and date of . Chief Complaint Patient presents with pre-op exam Pre op visit. No concerns. ' documented in this encounter Plan of Treatment Upcoming Encounters Date Type Department Care Team (Late st Contact Info) Description 07/11/2024 11:20 AM EDT Telemedicine Sleep Disorders Ctr [facility] [address] [place] [address] Leatha Vale DO [address] [facility] [place] [id number] Scheduled Procedures Name Priority Associated Diagnoses Date/Ti me COLONOSCOPY FLEXIBLE PROXIMAL DIAGNOSTIC Recall Screen for colon cancer Health Maintenance Due Date Last Done Comments Albumin/Creatinine Ratio 11/30/1989 Cologuard 11/30/2016 Fecal Occult Blood Test 11/30/2016 Sigmoidoscopy 11/30/2016 COVID-19 Vaccine ( season) 2023 02/25/2021, 01/17/2021 Influenza Vaccine (FLU shot) (#1) 2023 Depression Screening 07/16/2024 07/17/2023 GFR 01/20/2025 01/21/2024, 03/2 05/2023, 07/26/2022, Additional history exists Diabetes Screening 01/20/2027 01/21/2024, 0 06/16/2023, 07/26/2022, Additional history exists Lipid Panel 06/15/2028 06/16/2023, 05/0 05/2022, 08/03/2014, Additional history exists DTap/Tdap Vaccines (3 - Td or Tdap) 08/12/2028 08/12/2018, 06/26/2008 Colonoscopy 04/13/2032 04/13/2022, 04/13/2022 Colorectal Cancer Screening 04/13/2032 HIV Screening Discontinued HPV (Gardasil) Vaccine Aged Out No lo nger eligible based on patient's age to complete this topic Hepatitis B Vaccine Discontinued Hepatitis C Screening Discontinued MENINGOCOCCAL (MENACTRA/MENVEO) Aged Out No longer eligible based on patient's age to complete this topic Pneumococcal Vaccine: Pediatrics (0 to 5 Years) and At-Risk Patients (6 to 64 Years) Aged Out No longer eligible based on patient's age to complete this topic Zoster Vaccines Discontinued documented as of this encounter Medical Devices Not on filedocumented as of this encounter Visit Diagnoses Diagnosis Preoperative general physical examination- Primary Other specified pre-operative examination HTN, goal below 140/90 Unspecified essential hypertension Gastroesophageal reflux disease, unspecified whether esophagitis present documented in this encounter Care Teams Kosher Dietary Service Manager Relationship Specialty Start Date End Date Michael Palacios MD [address] [place] [address] PCP - General 01/12/00 documented as of this encounter"
--- OUTSIDE RECORDS SUMMARY | 2024-01-30 10:52 | External Medical Summary | Summary of Care ---
Author Name Unknown Organization [facility] Address [address] [place] [address] Phone [phone] Care Team Providers Care Bird Trapper Name Role Phone Michael Palacios MD Primary Care Provider [phone]- [phone] Encounter Details Date Type Department Care Team (Late st Contact Info) Description 01/29/[address] [facility] [address] [place] [facility] [place] [address] Michael Palacios MD [address] [place] [address] Allergies Active Allergy Reactions Criticality Noted Date [...] 50 MCG/ACT Nasal Suspension (Flonase)Indicatio ns:Mixed rhinitis USE 2 SPRAYS IN EACH NOSTRIL DAILY 48 g 3 03/12/2023 Active Ibuprofen 200 MG Oral Tablet (Motrin IB)Indications:Juanita lulitis, face,Swelling of left side of face Take 2 Tablets by mouth every 8 hours as needed for Other (swelling face). 06/05/2023 Active Dicyclomine HCl 10 MG Oral Capsule (Bentyl) TAKE 1 CAPSULE FOUR TIMES A DAY IF NEEDED FOR ABDOMINAL PAIN OR BLOATING 360 Capsule 07/04/2023 Active Azelastine & Fluticasone 137 & 50 MCG/ACT Nasal Therapy Pack daily. 02/09/2023 Active Proventil HFA 108 (90 Base) MCG/ACT Inhalation Aerosol SolutionIndication s:Fever in other diseases,Acute cough Inhale 2 Puffs by mouth in the morning and 2 Puffs at noon and 2 Puffs in the evening and 2 Puffs before bedtime. 6.7 g 07/25/2023 Active Additional Information Patient not taking.Reported on 01/15/2024 Montelukast Sodium 10 MG Oral Tablet (Singulair)Indicat ions:Allergic rhinitis, unspecified seasonality, unspecified trigger Take 1 Tablet by mouth in the morning. 90 Tablet 3 08/08/2023 Active Triamterene-HCTZ 75-50 MG Oral Tablet (Maxzide) TAKE 1 TABLET IN THE MORNING 90 Tablet 1 09/29/2023 Active Amoxicillin 500 MG Oral Tablet TAKE 4 TABLETS BY MOUTH 1 HOUR PRIOR TO APPOINTMENT 12/31/2023 Active Omeprazole 40 MG Oral Capsule Delayed Release (PriLOSEC)Indicati ons:Gastroesophage al reflux disease without esophagitis TAKE 1 CAPSULE DAILY 90 Capsule 3 01/22/2024 Active documented as of this encounter (statuses [...] Series (Pfizer) 02/25/2021,01/17/2021 TD, Preservative Free 08/12/2018 TDAP, Age [...] 18 years and over) Not on file 3 Are you (or your family) radha eless [...] on file documented as of this encounter Plan of Treatment Upcoming Encounters Date Type Department Care Team (Late st Contact Info) Description 07/11/2024 11:20 AM EDT Telemedicine Sleep Disorders Ctr [facility] [address] [place] [id number] Leatha Vale, [address] [place] [id number] Scheduled Procedures Name Priority Associated Diagnoses Date/Ti [...] Not on filedocumented as of this encounter Procedures Procedure Name Priority Date/Time Associated Diagnosis Comments XR CHEST 1 VIEW Routine 01/21/2024 documented in this encounter Results * XR CHEST 1 VIEW (01/21/2024) Anatomical Region Laterality Modality Chest Other 01/21/2024 Neftali Beltran PA-C RADIOLOGY (RAD GENERAL) documented in this encounter Care Teams Bird Trapper Relationship Specialty Start Date End Date Michael Palacios MD [address] [place] [address] PCP - General 01/12/00 documented as of this encounter
--- OUTSIDE RECORDS SUMMARY | 2024-01-30 10:52 | External Medical Summary | Summary of Care ---
Author Name Unknown Organization [facility] Address [address] [facility] [address] Phone [phone] Care Team Providers Care Relay Mechanic Name Role Phone Michael Palacios MD Primary Care Provider +1- [phone] Encounter Details Date Type Department Care Team (Late st Contact Info) Description 01/03/2024 Result Scan Unspecified Department <No scans attached> Allergies Active Allergy Reactions Criticality Noted Date [...] THE MORNING 90 Tablet 1 09/29/2023 Active documented as of this encounter (statuses [...] mRNA, LNP-s, No Pre serve, 2-Dose Series ([employer]) 02/25/2021,01/17/2021 TD, Preservative Free 08/12/2018 TDAP, Age [...] 11:20 AM EDT Telemedicine Sleep Disorders [facility] [address] [place] [phone] Leatha Vale DO [address] [place] [id number] Scheduled Procedures Name Priority Associated Diagnoses Date/Ti me COLONOSCOPY FLEXIBLE PROXIMAL DIAGNOSTIC Recall Screen for colon cancer Health Maintenance Due Date Last Done Comments Albumin/Creatinine Ratio 11/30/1989 Cologuard 11/30/2016 Fecal Occult Blood Test 11/30/2016 Sigmoidoscopy 11/30/2016 COVID-19 Vaccine ( season) 2023 02/25/2021, 01/17/2021 Influenza Vaccine (FLU shot) (#1) 2023 GFR 06/15/2024 01/21/2024, 0305/2023, 07/26/2022, Additional history exists Depression Screening 07/16/2024 07/17/2023 Diabetes Screening 06/15/2026 01/21/2024, 0 06/16/2023, 07/26/2022, Additional history exists [...] Procedure Name Priority Date/Time Associated Diagnosis Comments RADIOLOGY SCANNED RESULT 01/03/2024 documented in this encounter Results * RADIOLOGY SCANNED RESULT (01/03/2024) 01/03/2024 No Physician Data Unknown DIAGNOSTIC RAD IOLOGY SERVICES documented in this encounter Care Teams Relay Mechanic Relationship Specialty Start Date End Date Michael Palacios MD [address] [place], [place] [id number] PCP - General 01/12/00 documented as of this encounter
--- OUTSIDE RECORDS SUMMARY | 2024-01-30 10:52 | External Medical Summary | Summary of Care ---
Author Name Unknown Organization [facility] Address [address] [facility] [address] Phone [phone] Care Team Providers Care Rn X Ray Name Role Phone Michael Palacios MD Primary Care Provider +1- [phone] Encounter Details Date Type Department Care Team (Late st Contact Info) Description 01/21/2024 Result Scan Unspecified Department <No scans attached> [...] 11:20 AM EDT Telemedicine Sleep Disorders Ctr [facility] [address] [place] [phone] Leatha Vale, [address] [place] [id number] Scheduled Procedures Name Priority Associated Diagnoses Date/Ti [...] Procedure Name Priority Date/Time Associated Diagnosis Comments EKG SCANNED RESULT 01/21/2024 documented in this encounter Results * EKG SCANNED RESULT (01/21/2024) 01/21/2024 No Physician Data Unknown EKG documented in this encounter Care Teams Rn X Ray Relationship Specialty Start Date End Date Michael Palacios MD [address] [place] [address] PCP - General 01/12/00 documented as of this encounter
--- OUTSIDE RECORDS SUMMARY | 2024-01-30 10:52 | External Medical Summary | Summary of Care ---
Author Name Unknown Organization [facility] Address [address] [place] [address] Phone [phone] Care Team Providers Care Neurology Technologist Name Role Phone Michael Palacios MD Primary Care Provider +1- [phone] Encounter Details Date Type Department Care Team (Late st Contact Info) Description 01/29/2024 Orders Only [facility] [address] [place] [facility] [place] [address] Michael Palacios MD [address] [place] [address] Allergies Active Allergy Reactions Criticality [...] 11:20 AM EDT Telemedicine Sleep Disorders Ctr [facility] [address] [place] [phone] Leatha Vale, [address] [place] [address] Scheduled Procedures Name Priority Associated Diagnoses Date/Ti me COLONOSCOPY FLEXIBLE PROXIMAL DIAGNOSTIC Recall Screen for colon cancer Health Maintenance Due Date Last Done Comments Albumin/Creatinine Ratio 11/30/1989 Cologuard 11/30/2016 Fecal Occult Blood Test 11/30/2016 Sigmoidoscopy 11/30/2016 COVID-19 Vaccine ( season) 2023 02/25/2021, 01/17/2021 Influenza Vaccine (FLU shot) (#1) 2023 GFR 06/15/2024 01/21/2024, 05/25, 07/26/2022, Additional history exists Depression Screening 07/16/2024 [...] Procedure Name Priority Date/Time Associated Diagnosis Comments CHEMISTRY-OUTSIDE Routine 01/21/2024 documented in this encounter Results * (ABNORMAL) CHEMISTRY-OUTSIDE (01/21/2024) Not all results display below - see scan for full detail OUTSIDE LAB (SEE SCANNED REPORT) Comment:SEE SCAN - BMP, PTIN R, CBC, UA, TYPE AND SCREEN CREATININE 1.83(A) 0.6 - 1.4 MG/DL OUTSIDE LAB (SEE SCANNED REPORT) EGFR 43.85 ML/MIN OUTSIDE LA B (SEE SCANNED REPORT) POTASSIUM 3.5 3.5 - 5.1 MMOL/L OUTSIDE LAB (SEE SCANNED REPORT) GLUCOSE 76 70 - 99 MG/DL OUTSIDE LAB (SEE SCANNED REPORT) HOURS FASTING OUTSID E LAB (SEE SCANNED REPORT) TRIGLYCERIDES-OUT SIDE LAB OUTSIDE LAB (SEE SCANNED REPORT) CHOLESTEROL-OUTSI DE LAB OUTSIDE LAB (SEE SCANNED REPORT) HDL-OUTSIDE LAB OUTS THAI LAB (SEE SCANNED REPORT) CHOL/HDL RATIO-OUTSIDE LAB OUTSIDE LA B (SEE SCANNED REPORT) LDL (CALCULATED)-OUTS THAI LAB OUTSIDE LAB (SEE SCANNED REPORT) LDL (DIRECT MEASURE)-OUTSIDE LAB OUTSIDE LAB (SEE SCANNED REPORT) HEMOGLOBIN, [id number] LAB OUTSIDE LAB (SEE SCANNED REPORT) PHOSPHORUS-OUTSID E LAB OUTSIDE LAB (SEE SCANNED REPORT) PTH-OUTSIDE LAB OUTS THAI LAB (SEE SCANNED REPORT) MICROALBUMIN RATIO-OUTSIDE LAB OUTSIDE LA B (SEE SCANNED REPORT) PROTEIN, UA-OUTSIDE LAB OUTSIDE LAB (SEE SCANNED REPORT) HGB 15.8 14.0 - 18.0 G/DL OUTSIDE LAB (SEE SCANNED REPORT) 01/21/2024 Neftali Beltran PA-C LABORATORY OUTSIDE LAB (SEE SCANNED REPORT) documented in this encounter Care Teams Neurology Technologist Relationship Specialty Start Date End Date Michael Palacios MD [address] [place] [address] PCP - General 01/12/00 documented as of this encounter
--- OUTSIDE RECORDS SUMMARY | 2024-01-30 10:52 | External Medical Summary | Summary of Care ---
Author Name Unknown Organization [facility] Address [address] [place] [address] Phone [phone] Care Team Providers Care Business Ethics Professor Name Role Phone Derick Taylor MD Primary Care Provider +1- [phone] Reason for Visit * Reason Comments eRx-Medication Refill Encounter Details Date Type Department Care Team (Late st Contact Info) Description 01/21/2024 Refill [facility] [address] [place] [address] Derick Taylor MD [address] [place] [address] Gastroesophageal reflux disease without esophagitis Allergies Active Allergy Reactions Criticality Noted Date Comments Pollen 08/25/2014 documented as of this encounter (statuses as of 01/22/2024) Medications Medication Sig Dispensed Refills Start Date [...] CAPSULE DAILY 90 Capsule 3 01/22/2024 Active Omeprazole 40 MG Oral Capsule Delayed Release (PriLOSEC)Indica tions:Gastroesop hageal reflux disease without esophagitis TAKE 1 CAPSULE DAILY 90 Capsule 3 01/27/2023 01/22/20 24 Discontinued documented as of this encounter (statuses as of 01/22/2024) Active Problems Problem Noted Date Diagnosed Date Other chronic allergic conjunctivitis 05/18/2009 HTN, goal below 140/90 04/28/2009 Mixed rhinitis Gastroesophageal reflux disease documented as of this encounter (statuses as of 01/22/2024) Resolved Problems Problem Noted Date Diagnosed Date [...] as of this encounter (statuses as of 01/22/2024) Immunizations Name Administration Dates Next Due COVID-19 [...] 01/11/2023 Does the household have a re lar source of income? (Household - for ages [...] encounter Miscellaneous Notes * Telephone Encounter - Justin Gregory RPh - 01/22/2024 1:14 PM EDTSigned Prescriptions: Disp Refills Omeprazole 40 MG Oral Capsule Delayed Rele*90 Cap*3 Sig: TAKE 1 CAPSULE DAILYAuthorizing Provider: DERICK TAYLOR User: JUSTIN GREGORY documented in this encounter Plan of Treatment Upcoming Encounters Date Type Department Care Team (Late st Contact Info) Description 07/11/2024 11:20 AM EDT Telemedicine Sleep Disorders Ctr [facility] [address] [place] [phone] K[place] Leatha Hughes, [address] [place] [address] Scheduled Procedures Name Priority Associated Diagnoses Date/Ti me COLONOSCOPY FLEXIBLE PROXIMAL DIAGNOSTIC Recall Screen for colon cancer Health Maintenance Due Date Last Done Comments Albumin/Creatinine Ratio 11/30/1989 Cologuard 11/30/2016 Fecal Occult Blood Test 11/30/2016 Sigmoidoscopy 11/30/2016 COVID-19 Vaccine ( season) 2023 02/25/2021, 01/17/2021 Influenza Vaccine (FLU shot) (#1) 2023 GFR 06/15/2024 06/16/2023, 05/0 05/2022, 11/01/2020, Additional history exists Depression Screening 07/16/2024 07/17/2023 Diabetes Screening 06/15/2026 06/16/2023, 0 07/26/2022, 11/01/2020, Additional history exists Lipid Panel 06/15/2028 06/16/2023, [...] as of this encounter Visit Diagnoses Diagnosis Gastroesophageal reflux disease without esophagitis Esophageal reflux documented in this encounter Care Teams Business Ethics Professor Relationship Specialty Start Date End Date Derick Taylor MD [address] [place] [address] PCP - General 01/12/00 documented as of this encounter
[2024-01-30] MEDS: ROPIV 0.5% 246mg, Ketorolac 30mg, EPINEPHrine 0.5mg in NSS INFIL SCH (10:57)
--- NOTE | 2024-01-30 11:15 | Post Operative Brief Note ---
Immediate Post Op Note Date of Surgery January 30, 2024 Pre & Post Diagnosis Operation Date: 01/30/24 08:50 <No data on this case meets the specified criteria> Pre and postop diagnosis is severe osteoarthritis right hip with marked protrusio and stiffness. I identified the patient and participated in the time-out.: Yes Procedure Operation Date: 01/30/24 08:50 <No data on this case meets the specified criteria> Noncemented right total replacement with dual mobility cup. Surgeon Dmitriy Mixon MD Supervisor Model Making Debi/Melina Estimated Blood Loss 300 Findings Consistent with Post-Op Diagnosis Severe osteoarthritis with marked osteophyte formation along the femoral neck to the acetabulum circumferentially. Marked retroversion. Sciatic nerve close to the operative site. Needed marked protection during the entire case. This was accomplished. Fluids See anesthesia report Complications None
--- NOTE | 2024-01-30 11:21 | Operative Report ---
Post Operative Report Pre & Post Diagnosis Operation Date: 01/30/24 08:50 <No data on this case meets the specified criteria> Preop diagnosis severe osteoarthritis with marked protrusio right hip postop diagnosis same I identified the patient and participated in the time-out.: Yes Procedure Operation Date: 01/30/24 08:50 <No data on this case meets the specified criteria> Noncemented right total replacement with dual mobility cup Surgeon Dmitriy Mixon MD Cam Milling Machine Operator Debi/Day Estimated Blood Loss 300 Findings Consistent with Post-Op Diagnosis Severe ostial arthritis with marked protrusio and marginal osteophytes of the femoral head and acetabulum 360 degrees. Fluids See anesthesia report Specimens Bone Drains None Complications None Indications Severe pain marked x-ray disease. Description of Procedure After the patient was appropriate notified site verified consent verified antibiotics confirmed as being given the right lower extremity was prepped and draped use routine fashion. The hip was remarkably stiff. Generally the abducted about 10 to 15 degrees and flex to 80 degrees. Once it was prepped and draped in he was placed in the lateral decubitus position appropriately everything padded posterior incision was made for a Kristine Langenbeck approach. Due to his size and stiffness the incision was appropriately lengthened. Full-thickness flaps raised the fascia then incised IT band and gluteus megan fascia appropriate tractors were placed care taken protect the sciatic nerve which was palpated. The short external rotators and capsule were markedly contracted and the fact that he was stuck in external rotation. These were released. The hip could not be dislocated until osteophytes around the marginal aspect of the acetabulum were excised and on the femoral neck. Once this was done the hip was then dislocatable. The femoral neck was then resected the hip femoral head was markedly deformed as well as the acetabulum. Serial reaming was carried out with care taken to protect the sciatic nerve was reamed up to 54 and a 54 cup impacted into appropriate anteversion inclination and secured with an additional 6.5 x 25 screw with excellent purchase. An excessive amount of osteophytes to be removed along the margin of the acetabulum in order to get the new mobility implant to be seated appropriately. There required 1 revision to get and secured after more osteophytes were explored and excised. Once that was done the implant secured nicely. Femur was then flexed and internally rotated the proximal femur. With the skiver box toe canal finder lateralizing rasp and serial broaching up to a size 4. Reduction was carried out with a 28+1.5 ceramic head. This allowed the leg lengths to be relatively equal and the hip to be stable with the exception of marked flexion and internal rotation flexion beyond 90 degrees and internal rotation beyond 50 degrees. The leg lengths were within millimeters of the quality. The hip was then dislocated the trial remaining trial elements removed the wound was soaked in Betadine for 3 minutes and then Pulsavac then the permanent stem bed seated the hip was then reduced everything was as it was before nice and stable with leg lengths were within millimeters of the quality. The short external rotators and capsule were still contracted they could not be closed. Deep fascia was closed with #2 Vicryl the deep subcutaneous tissue with #2Vicryl attached to the fascia and the subcutaneous tissue with 2-0 Vicryl. The skin was then approximated with belkis. It was then supplemented with #1 Prolene retention sutures. An appropriate bulky dressing was then applied the patient transferred recovery in satisfactory descending tolerated the procedure well. Estimated blood loss was roughly 300 cc crystalloid per anesthesia Summary of implants size 54 acetabular shell sector cup hole eliminator 6.5 x 25 screw Actis dual fix hip prosthesis femoral stem size 4 standard dual mobility liner 54/47 by mentum liner 47/28 and the ceramic femoral head 28+1.5. DVT prophylaxis will begin with Eliquis tomorrow. PT to start today. Can be weightbearing as tolerated. Hip precautions. Family friend Damion was contacted. I attest to the content of the Intraoperative Record and any orders documented therein. Any exceptions are noted below.
--- NOTE | 2024-01-30 11:21 | Operative Report ---
Post Operative Report Pre & Post Diagnosis Operation Date: 01/30/24 08:50 Pre-Op Diagnosis: Right Hip Degenerative Joint Disease Post-Op Diagnosis: Right Hip Degenerative Joint Disease I identified the patient and participated in the time-out.: Yes Procedure Operation Date: 01/30/24 08:50 Actual Procedures p Right Total Hip Arthroplasty with Dual Mobility Implant, Uncemented(Right) - Dmitriy Mixon MD Surgeon Dmitriy Mixon MD Appeals Representative Carrera/Day Estimated Blood Loss 300 Findings Consistent with Post-Op Diagnosis Specimens Bone pathology Description of Procedure The patient was brought to the operative suite where he underwent anesthesia. He was placed in the left lateral decubitus position. The right lower extremity was prepped and draped in the usual sterile fashion. A surgical timeout was performed. Patient underwent a right total hip arthroplasty, please see Dr. Mixon's operative report for full details. I was present assisted with patient positioning, limb positioning, soft tissue retraction, hemostasis, hardware placement, wound closure, postoperative dressing placement. The patient was awakened and taken to the recovery room in stable condition. I attest to the content of the Intraoperative Record and any orders documented therein. Any exceptions are noted below.
--- NOTE | 2024-01-30 11:22 | Orthopedic Progress Note ---
Date of Service January 30, 2024 Orthopedic Progress Note Patient underwent total replacement right side. Tolerated well. Denies chest pain shortness of breath fever chills nausea vomiting headache. Vital signs are stable. Neurovascular check limited by spinal. X-ray pending. Family contacted. Begin DVT PE prophylaxis tomorrow.
--- NOTE | 2024-01-30 11:24 | Discharge Summary ---
Date of Service January 31, 2024 Admission HPI Per Admitting Provider Severe pain right hip secondary to severe osteoarthritis. Principal Diagnosis right total hip replacement Discharge Data Allergies Allergy/AdvReac Type Severity Reaction Status Date / Time grass pollen Allergy Mild Sneezing Verified 01/30/24 06:47 tree and shrub pollen Allergy Mild Watery Eye Verified 01/30/24 06:47 weed pollen Allergy Mild Sneezing Verified 01/30/24 06:47 Vaccinations None Consultations None Procedures Performed Operation Date: 01/30/24 08:50 Actual Procedures p Right Total Hip Arthroplasty with Dual Mobility Implant, Uncemented(Right) - Dmitriy Mixon MD Ordered Studies X-rays bone pathology Hospital Course (1) Status post right hip replacement: Care plan for total hip replacement. Discharge tomorrow. Total Time Total Time Spent Total Time Spent (In Minutes): 5 Discharge Plan Discharge Items Patient Disposition: Home - Self-Care Reason For Visit: Right Hip Degenerative Joint Disease Discharge Diagnosis: Status post right total hip replacement Activity: Per Instructions section Lifting: Wait until after follow-up appointment Bathing: Keep incision dry Sexual Activity: Wait until after follow-up appointment Exercise/Sports: Wait until after follow-up appointment Driving/Machine Use: No driving until cleared by Dr. Mixon Weightbearing: Full weightbearing Non-emergency contact: Surgeon Call non-emergency contact if: you have any medication questions, your pain is not controlled, your temperature is above 101, your wound has increased redness, your wound has increased drainage and your wound pain has increased Follow-up/Referrals: Michael Palacios MD [Primary Care Provider] - Diet: Regular Addtl Attending Provider Instructions: New Medicine: * You will likely be taking one or more of these medicines: 1. Percocet - Take, as directed, when you need it, every four to six hours to control your pain. 2. Iron Sulfate - Take 1x each day for the month after surgery to help you replace the blood lost during surgery. 3. Eliquis - Thins your blood to lessen the chance of forming a blood clot. * The most common side effects of pain medicine and iron are nausea and constipation. If nausea or constipation is too much of a problem or if you have any questions about your new medicines or doses, call [facility] at . We will try to help you manage these issues. "VERY IMPORTANT TO READ AND REVIEW" Blood Clots and Blood Thinning Medicine: * You are given Eliquis during the immediate post-operative period to lessen the risk of blood clots forming in your legs and/or lungs. It is usually given for 4 weeks after surgery. Pain: * The immediate post-operative period after hip replacement surgery is often quite painful. * You are given a prescription for pain medicine. You should take it, as directed, when you need it, especially before physical therapy and before going to bed. Pain that interferes with sleep is very common and can last several months. * You will likely need pain medicine for the first two to four weeks. It will not stop all of the pain. The pain will lessen and as you feel better, you may change to milder pain medicine such as Tylenol. * The most common side effects of pain medicine are nausea and constipation, so don't take more than you need. Physical Therapy: * Follow the "Hip Precautions Instructions." * In some cases, the social secretary at the hospital will arrange to have a therapist come to your house for the first couple of weeks to help you learn these skills. * You need to practice on your own or with the help of a family member as needed. * When you learn these skills, most of the therapy can be done on your own. Home Exercise: * You were shown a series of exercises in the hospital. Do these exercises three to four times each day including the exercises you were shown in physical therapy. Walking: * Get up and walk several times each day. For the first four weeks, try not to stand or walk for more than one hour at a time. If you do stand or walk for more than one hour, you will not hurt anything, but your leg will likely swell. * As you feel comfortable, you may change from the walker or crutches to a cane and then to independent walking. SELF CARE INSTRUCTIONS AFTER TOTAL HIP REPLACEMENT Until the incision and soft tissues around your hip have healed, there is a possibility that the hip prosthesis could dislocate. A. Observe the following precautions to prevent dislocation: 1. Don't bend your hip greater than 90 degrees. 2. Avoid crossing your legs or ankles while standing or lying. 3. Sit with your feet placed 6 inches apart. 4. When sitting, keep your knees below your hips. Sit on a firm surface, avoid deep, soft chairs and couches. Use an elevated toilet seat in the bathroom. 5. Don't bend over at the waist. Use a long handled shoehorn and a sock aid to help you put on your shoes and socks. A rim technician can help you bulk picker objects that are too high or too low to reach. 6. Keep car riding to a minimum for at least one month after surgery. B. Your balance may be shaky for a while. Use crutches or a walker until directed by your doctor. C. Use hand rails when walking on stairs. D. Wear low heeled shoes with non-slip soles. E. Be sure that your floors are free of things that could trip you - throw rugs, electrical cords, small objects. Avoid wet and waxed floors, especially with crutches and canes. F. Try to walk several times a day with rest periods between. G. Continue with all the exercises taught to you in the hospital. Again, make walking a part of your daily routine. VERY IMPORTANT TO READ AND REVIEW A. Take Coumadin, or Lovenox (blood thinning medications) as directed by your doctor. If you are on Coumadin, have a pro-time (blood test) drawn according to your doctor's instructions. This will tell the doctor how well the Coumadin is thinning your blood. B. There are a few signs you need to watch for after you are home. If you notice any of the followin. Increased severe hip pain. Some pain is expected especially when you exercise. 2. Increased swelling in your leg or knee; pain or swelling of the calf muscle in either lower leg. 3. Any fluid drainage from the incision. 4. Shortness of breath or chest pain. TEDs/Elastic Stockings: * The white elastic stockings help limit swelling and prevent blood clots from forming in your legs. The more you wear them, the more they work. * Wear them for six weeks. Prevention of Infection: * Take antibiotics one hour before any dental cleaning, dental work, urological procedure, gastrointestinal procedure or any invasive surgery in order to prevent your new joint from getting infected. * You may get the antibiotics from the doctor performing the procedure or we will call in a prescription to the pharmacy of your choice. Call the office for a prescription at least 2 days prior to your appointment. Diet: * You may return to previous diet. Things to Watch For: * Drainage from the incision site that occurs more than one week after your surgery. * Severely increased leg pain or swelling. * Increased redness at the incision site. * Fever above 101 degrees Fahrenheit. * Unusual chest pain or shortness of breath. * Unusual pain or burning with urination. MEDICATIONS: * Please take your prescriptions as instructed at your pre-op appointment and/or see medication discharge instructions listed above. * If concerns develop, call your physician's office at . SPECIAL CARE INSTRUCTIONS: * Ice/Elevate as instructed. * Keep dressing clean, dry, intact. * Your surgical extremity may be discolored due to prepping agents used on the skin. A bluish-green tint is a normal variant and should not cause alarm. Call your doctor at [phone] if: * Temperature above 101 degrees * Pain not relieved by pain medicine ordered * There is increased drainage or redness from any incision * You have any unanswered questions, problems or concerns. FOLLOW UP VISIT: * If not already scheduled, please call the office at to schedule a follow-up appointment. Start your Eliquis tonight with dinner. Take it 2 x day x 4 weeks to prevent ramsey ts use your walker. follow up in PT on Sunday as scheduled ice the hip frequently to reduce pain/swelling Pending Studies at Discharge: Yes Studies:: bone pathology Stand-Alone Forms: My [facility] Medications and DC Order Prescriptions: No Action azelastine 137 mcg (0.1 %) aerosol,spray 2 spray intranasal DAILY Qty: 90 3RF multivitamin with minerals Tablet 1 tab PO DAILY omeprazole 40 mg capsule,delayed release(DR/EC) 40 mg PO QAM dicyclomine 10 mg capsule 10 mg PO BID PRN (Reason: Abdominal Pain) fluticasone propionate [Allergy Relief (fluticasone)] 50 mcg/actuation spray,suspension 1 spray intranasal DAILY PRN (Reason: Allergy Symptoms) Rx Instructions: administer into each nostril cetirizine 10 mg tablet 10 mg PO DAILY PRN (Reason: Allergy Symptoms) triamterene-hydrochlorothiazid 75-50 mg Tablet 1 tab PO QAM Discharge Orders: Discharge Order (Routine); Ordered 01/31/24 Ordered By: Dmitriy Mixon Admission Data Admit Date/Time: 01/30/24 11:31 Attending Provider: Dmitriy Mixon Admit Provider: Dmitriy Mixon Primary Care Provider: Michael Palacios
[2024-01-30] MEDS: fentaNYL citrate PF 100 MCG/2 ML VIAL IV PRN (11:40)
[2024-01-30] MEDS: HYDROmorphone INJ 1 MG/ML SYRINGE IV PRN (11:50)
--- NOTE | 2024-01-30 12:06 | Anesthesiology Progress Note ---
Date of Service January 30, 2024 Anesthesia Post Procedure Vital Signs Vital Signs: Temp Pulse Resp BP BP Pulse Ox O2 Del Method 01/30/24 11:55 67 12 124/82 99 Oxymask 01/30/24 11:45 73 20 122/89 99 Oxymask 01/30/24 11:35 77 18 134/94 100 Oxymask 01/30/24 11:25 70 13 131/83 97 Oxymask 01/30/24 11:17 36.0 C L 78 12 133/97 98 Oxymask 01/30/24 06:57 139/94 01/30/24 06:50 36.9 C 84 20 168/101 H 95 Room Air O2 Flow Rate 01/30/24 11:55 3 01/30/24 11:45 4 01/30/24 11:35 4 01/30/24 11:25 4 01/30/24 11:17 6 01/30/24 06:57 01/30/24 06:50 Pain Intensity Right Hip: Pain Intensity: 5 Transfer of Care Handoff Completed per policy Notes Mental Status: alert / awake / arousable and participated in evaluation Patient Amnestic to Procedure: Yes Nausea / Vomiting: adequately controlled Pain: adequately controlled Airway Patency, RR, SpO2: stable & adequate BP & HR: stable & adequate Hydration State: stable & adequate Neuraxial Anesthesia: was administered and sensory block is resolving Anesthetic Complications: no major complications apparent and Pt Satisfied with anesthetic care
[2024-01-30] MEDS ORDERED: TAMSULOSIN HCL 0.4 MG CAP PO PRN (12:49)
[2024-01-30] MEDS ORDERED: CETIRIZINE HCL 10 MG TABLET PO PRN (12:49)
[2024-01-30] MEDS ORDERED: METOCLOPRAMIDE HCL INJ 5 MG/ML 2 ML VIAL IV PRN (12:49)
[2024-01-30] MEDS ORDERED: HYDROmorphone INJ 0.5 MG/0.5 ML SYR IV PRN (12:49)
[2024-01-30] MEDS ORDERED: NALOXONE HCL 0.4 MG/1 ML VIAL/CARP IV PRN (12:49)
[2024-01-30] MEDS ORDERED: diphenhydrAMINE Capsule 25 MG CAP PO PRN (12:49)
[2024-01-30] MEDS ORDERED: FLUTICASONE PROPIONATE NA SPR 16 GM BTL NAE PRN (12:49)
[2024-01-30] MEDS ORDERED: DICYCLOMINE HCL 10 MG CAP PO PRN (12:49)
[2024-01-30] MEDS ORDERED: MAGNESIUM HYDROXIDE SUSP 30 ML UDC PO PRN (12:49)
[2024-01-30] MEDS ORDERED: VANCOMYCIN CONSULT ACTIVE PRN (12:49)
[2024-01-30] MEDS ORDERED: bisacodyL 10 MG SUPP PR PRN (12:49)
[2024-01-30] MEDS: oxyCODONE HCL IR 5 MG TAB (IMMEDIATE RELEASE) PO PRN (13:05)
--- NOTE | 2024-01-30 13:34 | Orthopedic Progress Note ---
Date of Service January 30, 2024 Assessment & Plan Admission and Anticipated Discharge Date Admission Date: January 30, 2024 Orthopedic Progress Note Postop check. Patient is doing well denies chest pain shortness of breath fever chills nausea vomiting or headache. Vital signs are stable he is afebrile. Neurovascular check femoral sciatic nerve is normal. Wound dressing clean dry and intact. X-rays postop look excellent. Assessment doing well status post total replacement continue care pathway. Initiate anticoagulation tomorrow.
[2024-01-30] MEDS: ACETAMINOPHEN 500 MG TAB PO SCH (14:45)
[2024-01-30] MEDS ORDERED: HYDROmorphone HCL 2 MG TAB PO PRN (14:52)
[2024-01-30] MEDS: VANCOMYCIN HCL 1,750 MG in DEXTROSE 5% 500 ML IV ONE (15:40)
[2024-01-30 19:07] VITALS: RESP 18
[2024-01-30] MEDS: ceFAZolin 2000MG 2,000 MG/15 ML SYR IV SCH (19:57)
[2024-01-30] MEDS: DOCUSATE SODIUM 100 MG CAP PO SCH (20:11)
[2024-01-30] MEDS: SENNA 8.6 MG TAB PO SCH (20:12)
--- NOTE | 2024-01-30 21:06 | XRay Report ---
INDICATION: Postoperative evaluation. TECHNIQUE: One view of the low pelvis. COMPARISON: Radiograph from 01/03/2024. FINDINGS/IMPRESSION: Interval placement of right hip hardware. Hardware appears intact. Postoperative changes in the right hip soft tissues. Left hip hardware with similar alignment. No acute fracture or dislocation. Electronically signed by Dhiraj Hoover 01-30-2024 6:01 PM
[2024-01-31 06:44] LABS: Basophils # (auto) 0.03 K/uL (0.00-0.20); Basophils % (auto) 0.2 %; Hematocrit (blood only) 37.5 % (42.0-52.0); Hemoglobin 13.6 g/dl (14.0-18.0); Immature Granulocytes # (auto) 0.07 K/uL (0.01-0.20); Immature Granulocytes % (auto) 0.4 %; Lymphocytes # (auto) 2.02 K/uL (1.20-3.40); Lymphocytes % (auto) 11.7 %; Mean Corpuscular Hemoglobin 32.3 pg (25.0-34.0); Mean Corpuscular Hgb Conc 36.3 g/dL (32.0-36.0); Mean Corpuscular Volume 89.1 fL (80.0-100.0); Mean Platelet Volume 10.6 fL (9.4-12.4); Monocytes # (auto) 1.78 K/uL (0.11-0.59); Monocytes % (auto) 10.3 %; Neutrophils # (auto) 13.39 K/uL (1.40-6.50); Neutrophils % (auto) 77.4 %; Platelet Count 260 K/uL (130-400); RDW Coefficient of Variation 12.3 % (11.5-14.5); RDW Standard Deviation 40.1 fL (36.4-46.3); Red Blood Count 4.21 M/uL (4.70-6.10); White Blood Count 17.29 K/ul (4.8-10.8)
[2024-01-31 06:55] LABS: BUN Creatinine Ratio 17.1 (10-20); Calcium 9.1 mg/dl (8.6-10.3); Creatinine Clr Calc Pharmacy 103.7 ml/min; Potassium 3.3 mmol/L (3.5-5.1)
--- NOTE | 2024-01-31 07:21 | Orthopedic Progress Note ---
Date of Service January 31, 2024 Assessment & Plan Admission and Anticipated Discharge Date Admission Date: January 30, 2024 Orthopedic Progress Note Postop day #1 status post right total replacement. Patient is doing well denies chest pain shortness of breath fever chills nausea vomiting or headache. Vital signs are stable he is afebrile. Neurovascular check femoral sciatic nerve is normal. Calves nontender bilaterally. Wound dressing clean dry and intact. A.m. hematocrit 37.8. Assessment doing well plan is to discharge home today after PT OT. Will place wound dressing on this morning. Begin Eliquis DVT PE prophylaxis this morning.
[2024-01-31 07:49] VITALS: BP 141/79; PULSE 82; TEMP 98.1; O2SAT 96
[2024-01-31] MEDS: MULTIVITAMIN TAB PO SCH (08:09)
[2024-01-31] MEDS: APIXABAN 2.5 MG TAB PO SCH (08:09)
[2024-01-31] MEDS: TRIAMTERENE/HCTZ 37.5/25MG TAB PO SCH (08:09)
[2024-01-31] MEDS: PANTOprazole 40 MG TAB PO SCH (08:09)
[2024-01-31] MEDS: AZELASTINE HCL 0.1% NASAL 200 SPRAYS/27,400 MCG BTL NAE SCH (08:10)
== END 2024-01-31 11:32 | disposition home or self-care (01) ==
LOC: ASU 06:28 → 3E 06:28